=== PATIENT | female | born 1945 | race Caucasian/White ===

== ENCOUNTER 2021-09-25 16:17 | Inpatient (IN) | payer MEDICARE, SELFPAY ==
[2021-09-25] VITALS (10 sets, daily range): BP systolic 136–160; BP diastolic 60–72; PULSE 64–83; RESP 16–20; TEMP 36.7–36.8; O2SAT 95–99; BMI 19.1
--- NOTE | 2021-09-25 16:42 | DI.RAD.S_ITS ---
PROCEDURE: XR FEMUR LT MIN 2V INDICATIONS: slipped on ice/ GLF with shortening and external rotation TECHNIQUE: 2 views of the femur were acquired. COMPARISON: None. FINDINGS: Bones: Generalized decrease in osseous mineralization noted. Oblique fracture of the distal femoral diaphysis is noted with foreshortening and overlapping fracture fragments. Medial angulation present involving distal fracture fragment as well. Total knee arthroplasty present. Soft tissues: No suspicious soft tissue calcifications or masses. IMPRESSION: Displaced and angulated oblique distal femoral diaphyseal fracture. Approved by: Laz Ruvalcaba M.D. on 09/25/2021 at 16:26
--- NOTE | 2021-09-25 16:42 | DI.RAD.S_ITS ---
PROCEDURE: XR PELVIS 1-2V INDICATIONS: slipped on ice/ GLF with shortening and external rotation TECHNIQUE: 1 view(s) of the pelvis acquired. COMPARISON: None. FINDINGS: Bones: Curvilinear lucency in the left intertrochanteric region is suspicious for nondisplaced fracture. No dislocations. No suspicious bony lesions. Soft tissues: Visualized bowel gas pattern is normal. No suspicious soft tissue calcifications. IMPRESSION: Suspect nondisplaced left intertrochanteric fracture. Dictated by: Anshul Goodrich M.D. on 09/25/2021 at 17:00 Approved by: Anshul Goodrich M.D. on 09/25/2021 at 17:02
[2021-09-25 17:12] LABS: Add Manual Diff / Slide Review NO; Basophils Absolute Auto 100 /uL (0-100); Basophils Percent Auto 0.6 % (0-2); Eosinophils Absolute Auto 0 /uL (0-450); Eosinophils Percent Auto 0.2 % (2-4); Hematocrit 37.1 % (36-46); Hemoglobin 12.5 g/dL (12.0-16.0); Lymphocytes Absolute Auto 900 /uL (1100-4500); Lymphocytes Percent Auto 9.1 % (25-40); Mean Corpuscular HGB Conc 33.8 % (30-36); Mean Corpuscular Hemoglobin 31.5 PG (26-34); Mean Corpuscular Volume 93.2 fL (80-100); Monocytes Absolute Auto 500 /uL (0-900); Monocytes Percent Auto 4.8 % (3-14); Neutrophils Absolute Auto 8200 /uL (1500-7000); Neutrophils Percent Auto 85.3 % (50-75); Platelet Count 323 X10^3/uL (150-400); Red Blood Cell Count 3.98 X10^6/uL (4.0-5.2); Red Cell Distribution Width 13.5 % (11.6-14.8); White Blood Cell Count 9.6 X10^3/uL (4.5-11.0)
[2021-09-25 17:23] LABS: INR 1.1 (0.9-1.3); Prothrombin Time 11.7 SECONDS (10.1-12.7)
[2021-09-25] MEDS: MORPHINE 2 MG/ML INJ IV ×3 (17:25→23:32)
[2021-09-25 17:27] LABS: Alanine Aminotransferase 30 IU/L (<35); Albumin 3.9 g/dL (3.5-5.0); Albumin Globulin Ratio 1.2 (1.0-2.8); Alkaline Phosphatase 58 U/L (38-126); Aspartate Aminotransferase 38 IU/L (14-36); Bilirubin Total 0.5 mg/dL (0.2-1.3); Blood Urea Nitrogen 16 mg/dL (7-17); Calcium 8.9 mg/dL (8.4-10.2); Carbon Dioxide 30 mmol/L (22-32); Chloride 105 mmol/L (98-107); Estimated Glomerular Filt Rate > 60.0 mL/min (>60); Globulin 3.3 g/dL (1.7-4.1); Glucose 93 mg/dL (80-110); HEMOLYSIS < 15 (0-50); Potassium 3.9 mmol/L (3.4-5.1); Sodium 138 mmol/L (137-145); Total Protein 7.2 g/dL (6.3-8.2)
--- NOTE | 2021-09-25 17:33 | ED_ITS ---
HPI - Fall General Chief Complaint: Fall Stated Complaint: L Hip Fx Time Seen by Provider: 09/25/21 16:57 History of Present Illness HPI Narrative: 76-year-old female with history of a muscular dystrophy, presenting after a slip and fall on ice. [place] she slipped and fell landing on her left side. She did not hit her head or lose consciousness. She has no numbness tingling or weakness. She is having pain in her left knee area. She is not on any antiplatelet or anticoagulation medication. No other complaints at this time. Related Data Home Medications Medication Instructions Recorded Confirmed CHOLECALCIFEROL (VITAMIN D) 2,000 iu PO QDAY #0 09/05/11 [CALCIUM ] 1,000 mg PO QDAY #0 09/05/11 [FISH OIL] 1 tbls PO QDAY #0 09/05/11 [VYTORIN] 1 tab PO QDAY #0 09/05/11 acetaminophen 500 mg tablet 0 mg PO Q4HP #0 09/05/11 (Tylenol Extra Strength) Allergies Allergy/AdvReac Type Severity Reaction Status Date / Time No Known Drug Allergies Allergy Verified 09/25/21 17:17 Review of Systems Review of Systems Narrative: GENERAL: Denies chills,fever HEENT: Denies throat pain RESPIRATORY: Denies dyspnea, cough, wheezing CARDIOVASCULAR: Denies chest pain, palpitations GASTROINTESTINAL: Denies nausea, vomiting MUSCULOSKELETAL: See HPI SKIN: No rash, no laceration, no pruritus NEUROLOGIC: Denies weakness, dizziness, headache, numbness 8 point review of systems is negative except for those stated above and HPI Patient History Medical History Muscular dystrophy Exam Initial Vital Signs Initial Vital Signs: Vital Signs Pulse Rate 72 09/25/21 16:21 Blood Pressure 160/72 H 09/25/21 16:21 Pulse Oximetry 98 09/25/21 16:21 GENERAL: Thin 76-year-old female HEENT: Head atraumatic,EOMI, pupils reactive, face symmetric, moist mucous m embranes CARDIOVASCULAR: Regular rate and rhythm without murmurs, rubs or gallops. RESPIRATORY: Breath sounds equal bilaterally, no wheezes rales or rhonchi. ABDOMEN: Soft, nontender. Normoactive bowel sounds all 4 quadrants. No guarding or rebound. EXTREMITIES: Normal range of motion, no clubbing or edema. Neurovascularly intact. Left lower extremity swelling knee and superior distal pedal pulse intact and marked mild left hip pain pelvis is stable NEUROLOGICAL: Alert and oriented x4. SKIN: Warm, dry, no laceration, no petechiae, no rashes or lesions. 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 swab/PCR) Stat 09/25/21 18:07 CT LE LT wo con Stat CT pelvis wo con Stat Acetaminophen (Acetaminophen 325 Mg Tablet) 650 mg PO Q6HR PRN PRN Reason: Fever/Mild Pain (1-3) Sodium Chloride (Normal Saline 0.9%) 1,000 mls @ 100 mls/hr IV CONT ZACK Morphine Sulfate (Morphine 2 Mg/Ml Inj) 2 mg IV Q4HR PRN PRN Reason: Pain, Moderate (4-6) Naloxone HCl (Naloxone 0.4 Mg/Ml Vial) 0.2 mg IV Q2MIN PRN PRN Reason: Opiate Reversal Ondansetron HCl (Ondansetron 4 Mg/2 Ml Inj) 4 mg IV Q8HR PRN PRN Reason: Nausea And Vomiting Discontinued Medications Morphine Sulfate (Morphine 2 Mg/Ml Inj) 2 mg IV NOW ONE Stop: 09/25/21 17:16 Last Admin: 09/25/21 17:25 Dose: 2 mg Documented by: DAVID Vital Signs Vital signs: Vital Signs - 8 hr 09/25/21 16:21 09/25/21 16:30 09/25/21 16:31 Temperature Pulse Rate 72 64 70 Respiratory Rate Blood Pressure 160/72 H 142/62 H Pulse Oximetry 98 97 97 09/25/21 16:37 09/25/21 17:00 09/25/21 17:30 Temperature 98.1 F Pulse Rate 67 72 83 Respiratory Rate 16 Blood Pressure 142/62 H 141/65 H 141/60 H Pulse Oximetry 97 97 97 09/25/21 18:00 Temperature Pulse Rate 72 Respiratory Rate Blood Pressure 136/63 Pulse Oximetry 96 MDM - Fall Lab Data Result diagrams: 09/25/21 17:03 09/25/21 17:03 Labs: Lab Results 09/25/21 09/25/21 09/25/21 Range/Units 17:03 17:03 17:03 WBC 9.6 (4.5-11.0) X10^3/uL RBC 3.98 L (4.0-5.2) X10^6/uL Hgb 12.5 (12.0-16.0) g/dL Hct 37.1 (36-46) % MCV 93.2 (80-100) fL MCH 31.5 (26-34) PG MCHC 33.8 (30-36) % RDW 13.5 (11.6-14.8) % Plt Count 323 (150-400) X10^3/uL Neut % (Auto) 85.3 H (50-75) % Lymph % (Auto) 9.1 L (25-40) % [place] % (Auto) 4.8 (3-14) % Eos % (Auto) 0.2 L (2-4) % Baso % (Auto) 0.6 (0-2) % Neut # (Auto) 8200 H (8873-9127) /uL Lymph # (Auto) 900 L (4618-9129) /uL [place] # (Auto) 500 (0-900) /uL Eos # (Auto) 0 (0-450) /uL Baso # (Auto) 100 (0-100) /uL PT 11.7 (10.1-12.7) SECONDS INR 1.1 (0.9-1.3) Sodium 138 (137-145) mmol/L Potassium 3.9 (3.4-5.1) mmol/L Chloride 105 (98-107) mmol/L Carbon Dioxide 30 (22-32) mmol/L BUN 16 (7-17) mg/dL Creatinine 0.41 L (0.52-1.04) mg/dL Estimated GFR > 60.0 (>60) mL/min BUN/Creatinine Ratio 39.0 H (6-22) Glucose 93 (80-110) mg/dL Calcium 8.9 (8.4-10.2) mg/dL Total Bilirubin 0.5 (0.2-1.3) mg/dL AST 38 H (14-36) IU/L ALT 30 (<35) IU/L Alkaline Phosphatase 58 (38-126) U/L Total Protein 7.2 (6.3-8.2) g/dL Albumin 3.9 (3.5-5.0) g/dL Globulin 3.3 (1.7-4.1) g/dL Albumin/Globulin Ratio 1.2 (1.0-2.8) SARS-CoV-2 (PCR) (Negative) 09/25/21 Range/Units 17:14 WBC (4.5-11.0) X10^3/uL RBC (4.0-5.2) X10^6/uL Hgb (12.0-16.0) g/dL Hct (36-46) % MCV (80-100) fL MCH (26-34) PG MCHC (30-36) % RDW (11.6-14.8) % Plt Count (150-400) X10^3/uL Neut % (Auto) (50-75) % Lymph % (Auto) (25-40) % [place] % (Auto) (3-14) % Eos % (Auto) (2-4) % Baso % (Auto) (0-2) % Neut # (Auto) (0392-2523) /uL Lymph # (Auto) (4953-3892) /uL [place] # (Auto) (0-900) /uL Eos # (Auto) (0-450) /uL Baso # (Auto) (0-100) /uL PT (10.1-12.7) SECONDS INR (0.9-1.3) Sodium (137-145) mmol/L Potassium (3.4-5.1) mmol/L Chloride (98-107) mmol/L Carbon Dioxide (22-32) mmol/L BUN (7-17) mg/dL Creatinine (0.52-1.04) mg/dL Estimated GFR (>60) mL/min BUN/Creatinine Ratio (6-22) Glucose (80-110) mg/dL Calcium (8.4-10.2) mg/dL Total Bilirubin (0.2-1.3) mg/dL AST (14-36) IU/L ALT (<35) IU/L Alkaline Phosphatase (38-126) U/L Total Protein (6.3-8.2) g/dL Albumin (3.5-5.0) g/dL Globulin (1.7-4.1) g/dL Albumin/Globulin Ratio (1.0-2.8) SARS-CoV-2 (PCR) Negative (Negative) Imaging Data Extremity x-ray #1: Radiologist's Impression: PROCEDURE:? XR FEMUR LT MIN 2V ? INDICATIONS:? slipped on ice/ GLF with shortening and external rotation ? TECHNIQUE:? 2 views of the femur were acquired.? ? COMPARISON:? None. ? FINDINGS:? ? Bones:? Generalized decrease in osseous mineralization noted.? Oblique fracture of the distal femoral diaphysis is noted with foreshortening and overlapping fracture fragments. ?Medial angulation present involving distal fracture fragment as well.? Total knee arthroplasty present. ? Soft tissues:? No suspicious soft tissue calcifications or masses.? ? IMPRESSION:? ? Displaced and angulated oblique distal femoral diaphyseal fracture.? Approved by: Laz Ruvalcaba M.D. on 09/25/2021 at 16:26? Extremity x-ray #2: Radiologist's Impression: ADDENDUMThis report includes an Addendum and supersedes previous reports for this exam. ? ? ? PROCEDURE:? XR PELVIS 1-2V ? INDICATIONS:? slipped on ice/ GLF with shortening and external rotation ? TECHNIQUE:? 1 view(s) of the pelvis acquired.? ? COMPARISON:? None. ? FINDINGS:? ? Bones:? Curvilinear lucency in the left intertrochanteric region is suspicious for nondisplaced fracture.? No dislocations.? No suspicious bony lesions.? ? Soft tissues:? Visualized bowel gas pattern is normal.? No suspicious soft tissue calcifications.? ? IMPRESSION:? Suspect nondisplaced left intertrochanteric fracture. ? ? Dictated by: Anshul Goodrich M.D. on 09/25/2021 at 17:00 ? ? Approved by: Anshul Goodrich M.D. on 09/25/2021 at 17:02 ? ? ? ADDENDUM: This linear lucency could represent the posterior aspect of the greater troch anter as subsequent left femur radiographs demonstrate a distal spiral fracture. ? ? Dictated by: Anshul Goodrich M.D. on 09/25/2021 at 17:13 ? ? Approved by: Anshul Goodrich M.D. on 09/25/2021 at 17:14 ? Addendum Dictated By: Anshul Goodrich MD Addendum Signed By: Addendum Cosigned By: DD/ TD/TT: 09/25/21 PROCEDURE:? XR PELVIS 1-2V ? INDICATIONS:? slipped on ice/ GLF with shortening and external rotation ? TECHNIQUE:? 1 view(s) of the pelvis acquired.? ? COMPARISON:? None. ? FINDINGS:? ? Bones:? Curvilinear lucency in the left intertrochanteric region is suspicious for nondisplaced fracture.? No dislocations.? No suspicious bony lesions.? ? Soft tissues:? Visualized bowel gas pattern is normal.? No suspicious soft tissue calcifications.? ? IMPRESSION:? Suspect nondisplaced left intertrochanteric fracture. ? ? Dictated by: Anshul Goodrich M.D. on 09/25/2021 at 17:00 ? ? CT scan - abdomen/pelvis: Radiologist's Impression: PROCEDURE:? CT PEL WO CON ? INDICATIONS:? left hip ? TECHNIQUE:? Noncontrast 3 mm axial sections acquired through the bony pelvis, with coronal and sagittal reformatting.? ? COMPARISON:? None. ? FINDINGS:? Image quality:? Excellent.? ? Bones:? Generalized decrease in osseous mineralization noted.? Bilateral hip joint space narrowing and subchondral cysts on the left reflecting moderate osteoarthritis, left greater than right.? Both femoral heads have an appropriate contour.? No evidence of fracture or subluxation.? Degenerative changes noted in the lower lumbar spine ? Pessary device noted in the vaginal vault.? There has been a hysterectomy.? Small amount of free fluid in the pelvis. ? Soft tissues:? As above ? ? IMPRESSION:? ? No evidence of fracture or subluxation. Osteopenia and degenerative changes as above ? Approved by: Laz Ruvalcaba M.D. on 09/25/2021 at 17:44? ECG Data Interpretation: Normal sinus rhythm rate 68 CT interval 152 QRS 80 QTC 446 MDM Narrative Medical decision making narrative: Patient is found to have a distal femur fracture possible in her throat cancer fracture as well. Pain is controlled. She is neurovascularly intact. Dr. Arriaga orthopedics has been updated patient's symptoms test results his reviewed x-rays he is comfortable keeping her here, plan today go to OR tomorrow. Request CT and admit to hospitalist Dr. jackson, in ED to seen evaluate patient Discharge Plan Departure Patient Disposition: Admitted As Inpatient Clinical Impression: Femur fracture, left Admit Date/Time: 09/25/21 18:22 Admit Provider: Tonio Jackson
[2021-09-25 18:03] LABS: COVID19 - ADMIT (NP swab/PCR) Negative (Negative)
--- NOTE | 2021-09-25 18:07 | DI.CT.S_ITS ---
PROCEDURE: CT LE LT W CON INDICATIONS: Femoral fracture TECHNIQUE: Noncontrast 3 mm axial sections acquired of the left femur , with coronal and sagittal reformats. COMPARISON: None. FINDINGS: Image quality: Excellent. Bones: Generalized decrease in osseous mineralization noted. There is an oblique fracture through the distal femoral diaphysis with medial displacement of the distal fracture fracture and and foreshortening with bayonet apposition of fracture fragments. Total knee arthroplasty intact. Soft tissues: There is fatty atrophy of the medial muscle groups. No significant soft tissue hematoma. IMPRESSION: 1. Oblique distal femoral diaphyseal fracture with medial displacement and foreshortening. No significant soft tissue hematoma 2. Total knee arthroplasty appears intact next 3. Osteopenia Approved by: Laz Ruvalcaba M.D. on 09/25/2021 at 17:58
--- NOTE | 2021-09-25 18:07 | DI.CT.S_ITS ---
PROCEDURE: CT PEL WO CON INDICATIONS: left hip TECHNIQUE: Noncontrast 3 mm axial sections acquired through the bony pelvis, with coronal and sagittal reformatting. COMPARISON: None. FINDINGS: Image quality: Excellent. Bones: Generalized decrease in osseous mineralization noted. Bilateral hip joint space narrowing and subchondral cysts on the left reflecting moderate osteoarthritis, left greater than right. Both femoral heads have an appropriate contour. No evidence of fracture or subluxation. Degenerative changes noted in the lower lumbar spine Pessary device noted in the vaginal vault. There has been a hysterectomy. Small amount of free fluid in the pelvis. Soft tissues: As above IMPRESSION: No evidence of fracture or subluxation. Osteopenia and degenerative changes as above Approved by: Laz Ruvalcaba M.D. on 09/25/2021 at 17:44
--- NOTE | 2021-09-25 18:31 | PM.HP.1 ---
History of Present Illness History of Present Illness Date Patient Seen: 09/25/21 Time Patient Seen: 18:10 Chief complaint: L Hip Fx Narrative: Ms. Morgan is a 76W with past medical history of muscular dystrophy who comes in after a fall. She uses a walker, and [employer] in handicap parking. She got out of the car and slipped on ice and fell on her left side. No loss of consciousness. No head strike. She had severe pain in her left leg and hip. She was unable to ambulate. She is not on blood thinners. She comes from [place]. In the ED workup was done, vital signs notable for elevated blood pressure. Labs notable for WBC 9.6, hgb 12.5, INR 1.1, creatinine 0.41. Femur xray showed distal displaced femoral fracture. Pelvis xray showed possible left intertrochanteric fracture. She was ordered for IV pain medications. Orthopedic surgery consulted. She was admitted for further treatment. PMH: muscular dystrophy Family history: grandmother with muscular dystrophy Social history: no smoking, occasional alcohol socially Patient History Family & Social History Safety & Behavioral: Feels Safe in Current Yes Environment Been Physically Hurt or No Threatened By a Person Meds Home Medications and Allergies Home Medications Medication Instructions Recorded Confirmed Type CHOLECALCIFEROL (VITAMIN D) 2,000 iu PO QDAY #0 09/05/11 History [CALCIUM ] 1,000 mg PO QDAY #0 09/05/11 History [FISH OIL] 1 tbls PO QDAY #0 09/05/11 History [VYTORIN] 1 tab PO QDAY #0 09/05/11 History acetaminophen 500 mg tablet 0 mg PO Q4HP #0 09/05/11 History (Tylenol Extra Strength) Allergies Allergy/AdvReac Type Severity Reaction Status Date / Time No Known Drug Allergies Allergy Verified 09/25/21 17:17 Review of Systems Review of Systems Narrative: 14 systems reviewed and negative aside from what is noted in HPI Exam Vital Signs (past 8 hours): - 09/25/21 16:21 09/25/21 16:30 09/25/21 16:31 Temperature Pulse Rate 72 64 70 Respiratory Rate Blood Pressure 160/72 H 142/62 H Pulse Oximetry 98 97 97 09/25/21 16:37 09/25/21 17:00 09/25/21 17:30 Temperature 98.1 F Pulse Rate 67 72 83 Respiratory Rate 16 Blood Pressure 142/62 H 141/65 H 141/60 H Pulse Oximetry 97 97 97 09/25/21 18:00 Temperature Pulse Rate 72 Respiratory Rate Blood Pressure 136/63 Pulse Oximetry 96 Oxygen Delivery Method Room Air Narrative Exam Narrative: GEN: no acute distress HEENT: moist mucous membranes, PERRL NECK: trachea midline, no JVD CV: regular rate and rhythm, no murmurs PULM: clear bilaterally, no wheezes, rhonchi, rales ABD: soft, nontender, nondistended, no organomegaly EXT: warm and well perfused, left leg tender at hip and distal leg, hip is rotated, sensation intactt NEURO: awake, alert, moving all extremities, no focal deficits PSYCH: cooperative, pleasant Objective Labs Result Diagrams: 09/25/21 17:03 09/25/21 17:03 Labs: Laboratory Results - last 24 hr 09/25/21 09/25/21 09/25/21 17:03 17:03 17:03 WBC 9.6 RBC 3.98 L Hgb 12.5 Hct 37.1 MCV 93.2 MCH 31.5 MCHC 33.8 RDW 13.5 Plt Count 323 Neut % (Auto) 85.3 H Lymph % (Auto) 9.1 L [place] % (Auto) 4.8 Eos % (Auto) 0.2 L Baso % (Auto) 0.6 Neut # (Auto) 8200 H Lymph # (Auto) 900 L [place] # (Auto) 500 Eos # (Auto) 0 Baso # (Auto) 100 PT 11.7 INR 1.1 Sodium 138 Potassium 3.9 Chloride 105 Carbon Dioxide 30 BUN 16 Creatinine 0.41 L Estimated GFR > 60.0 BUN/Creatinine Ratio 39.0 H Glucose 93 Calcium 8.9 Total Bilirubin 0.5 AST 38 H ALT 30 Alkaline Phosphatase 58 Total Protein 7.2 Albumin 3.9 Globulin 3.3 Albumin/Globulin Ratio 1.2 SARS-CoV-2 (PCR) 09/25/21 17:14 WBC RBC Hgb Hct MCV MCH MCHC RDW Plt Count Neut % (Auto) Lymph % (Auto) [place] % (Auto) Eos % (Auto) Baso % (Auto) Neut # (Auto) Lymph # (Auto) [place] # (Auto) Eos # (Auto) Baso # (Auto) PT INR Sodium Potassium Chloride Carbon Dioxide BUN Creatinine Estimated GFR BUN/Creatinine Ratio Glucose Calcium Total Bilirubin AST ALT Alkaline Phosphatase Total Protein Albumin Globulin Albumin/Globulin Ratio SARS-CoV-2 (PCR) Negative Assessment & Plan Assessment & Plan narrative: Ms. Morgan is a 76W with a mechanical fall found to have a left femoral fracture. 1. Acute distal femoral fracture, possible left intertrochanteric fracture secondary to mechanical fall -xray shows left distal femoral fracutre, possible left IT fracture -patient npo -IV fluids ordered -IV pain meds ordered -orthopedic surgery consulted -CT left extremity and pelvis ordered to further evaluate fracture 2. Muscular dystrophy -follows at -not on any medications CODE: Full Proxy: Marry Mcguire, daughter I have utilized all available resources to reconcile the patient's home medications. Time Spent With Patient Critical Care time: I spent a total of [] minutes of critical care time on this patient's care today; this time is exclusive of procedural time. Quality MIPS - Admit I confirm the patient?s Advance Care Plan is present, Code status is documented, Surrogate decision maker is in patient?s record [If Yes, STOP here]: Yes
[2021-09-25] MEDS: SODIUM CHLORIDE 0.9% 1,000 ML 100 ML IV (19:58)
[2021-09-25] MEDS: LORazepam 0.5 MG TABLET PO (20:50)
[2021-09-25] MEDS: ONDANSETRON 4 MG/2 ML INJ IV (22:06)
[2021-09-25] MEDS: CYCLOBENZAPRINE 10 MG TABLET 5 MG PO (22:15)
[2021-09-26] VITALS (15 sets, daily range): BP systolic 97–146; BP diastolic 45–78; PULSE 71–87; RESP 9–18; TEMP 36.6–37.1; O2SAT 88–99; BMI 19.1
--- NOTE | 2021-09-26 | DI.RAD.S_ITS ---
PROCEDURE: XR FEMUR LT MIN 2V INDICATIONS: POST-OP LEFT FEMUR IM NAIL TECHNIQUE: To views of the femur were acquired. COMPARISON: [facility], CR, XR FEMUR LT MIN 2V, 09/25/2021, 16:46. FINDINGS: Bones: Patient is status post ORIF of distal left femur fracture. There is anatomic alignment of fracture fragments following placement of intramedullary marry with 2 distal interlocking screws and and 1 proximal interlocking screw. Left knee arthroplasty is stable compared to the prior exam. Soft tissues: No suspicious soft tissue calcifications or masses. IMPRESSION: Anatomic alignment following ORIF of left femur fracture. Dictated by: Sherrie Ferguson MD, PhD on 09/26/2021 at 20:17 Approved by: Sherrie Ferguson MD, PhD on 09/26/2021 at 20:18
--- NOTE | 2021-09-26 | DI.RAD.S_ITS ---
PROCEDURE: XR FEMUR LT MIN 2V INDICATIONS: INTRA OP LEFT IM NAIL TECHNIQUE: To views of the femur were acquired. COMPARISON: [facility], , XR FEMUR LT MIN 2V, 09/25/2021, 16:46. FINDINGS: Intraoperative images demonstrate anatomic alignment distal left femur fracture following placement of intramedullary marry. IMPRESSION: Intraoperative images for internal fixation distal left femur fracture. Dictated by: Sherrie Ferguson MD, PhD on 09/26/2021 at 20:19 Approved by: Sherrie Ferguson MD, PhD on 09/26/2021 at 20:19
--- NOTE | 2021-09-26 00:38 | PC.NURSE ---
Admit Note- Patient arrived to room via stretcher from ER at 1840. Admit questions done, physical assessment done, and skin check done. Patient oriented to bed and bed controls, room, lights, menu, phone, and call byrd/tv remote. Lucero cath patent and set to gravity to drain. PRN pain medications given as ordered per patient request. Patient tolerated with no s/s of ASE noted. Safety measures in place. Patient agrees to call for assistance. Bed alarm activated. Call byrd and phone within reach. will continue to monitor.
[2021-09-26 05:36] LABS: Add Manual Diff / Slide Review NO; Basophils Absolute Auto 0 /uL (0-100); Basophils Percent Auto 0.5 % (0-2); Eosinophils Absolute Auto 0 /uL (0-450); Hematocrit 36.3 % (36-46); Lymphocytes Absolute Auto 600 /uL (1100-4500); Lymphocytes Percent Auto 10.6 % (25-40); Mean Corpuscular Hemoglobin 31.2 PG (26-34); Mean Corpuscular Volume 94.5 fL (80-100); Monocytes Absolute Auto 300 /uL (0-900); Monocytes Percent Auto 5.3 % (3-14); Neutrophils Absolute Auto 4700 /uL (1500-7000); Neutrophils Percent Auto 83.6 % (50-75); Platelet Count 273 X10^3/uL (150-400); Red Blood Cell Count 3.85 X10^6/uL (4.0-5.2); Red Cell Distribution Width 13.6 % (11.6-14.8); White Blood Cell Count 5.6 X10^3/uL (4.5-11.0)
[2021-09-26 05:38] LABS: BUN Creatinine Ratio 34.9 (6-22); Blood Urea Nitrogen 15 mg/dL (7-17); Calcium 8.5 mg/dL (8.4-10.2); Carbon Dioxide 27 mmol/L (22-32); Chloride 106 mmol/L (98-107); Estimated Glomerular Filt Rate > 60.0 mL/min (>60); Glucose 109 mg/dL (80-110); HEMOLYSIS < 15 (0-50); Sodium 137 mmol/L (137-145)
[2021-09-26] MEDS: SODIUM CHLORIDE 0.9% 1,000 ML 100 ML IV ×2 (06:04→19:04)
--- NOTE | 2021-09-26 08:55 | PM.PN.1 ---
Subjective Subjective Date Patient Seen: 09/26/21 Time Patient Seen: 08:00 Interval history: Today she feels improved. Her pain in her leg is manageable. She is NPO for possible surgery. Exam Vital Signs (past 8 hours): - 09/26/21 06:05 09/26/21 08:12 Temperature 98.6 F Pulse Rate 82 Respiratory Rate 17 Blood Pressure 135/71 Pulse Oximetry 98 92 Oxygen Delivery Method Room Air Oxygen Flow Rate 0 Narrative Exam Narrative: GEN: no acute distress HEENT: moist mucous membranes, PERRL NECK: trachea midline, no JVD CV: regular rate and rhythm, no murmurs PULM: clear bilaterally, no wheezes, rhonchi, rales ABD: soft, nontender, nondistended, no organomegaly EXT: warm and well perfused, left leg tender at hip and distal leg, hip is rotated, sensation intactt NEURO: awake, alert, moving all extremities, no focal deficits PSYCH: cooperative, pleasant Objective Labs Result Diagrams: 09/26/21 05:12 09/26/21 05:12 Labs: Laboratory Results - last 24 hr 09/25/21 09/25/21 09/25/21 17:03 17:03 17:03 WBC 9.6 RBC 3.98 L Hgb 12.5 Hct 37.1 MCV 93.2 MCH 31.5 MCHC 33.8 RDW 13.5 Plt Count 323 Neut % (Auto) 85.3 H Lymph % (Auto) 9.1 L [place] % (Auto) 4.8 Eos % (Auto) 0.2 L Baso % (Auto) 0.6 Neut # (Auto) 8200 H Lymph # (Auto) 900 L [place] # (Auto) 500 Eos # (Auto) 0 Baso # (Auto) 100 PT 11.7 INR 1.1 Sodium 138 Potassium 3.9 Chloride 105 Carbon Dioxide 30 BUN 16 Creatinine 0.41 L Estimated GFR > 60.0 BUN/Creatinine Ratio 39.0 H Glucose 93 Calcium 8.9 Total Bilirubin 0.5 AST 38 H ALT 30 Alkaline Phosphatase 58 Total Protein 7.2 Albumin 3.9 Globulin 3.3 Albumin/Globulin Ratio 1.2 SARS-CoV-2 (PCR) 09/25/21 09/26/21 09/26/21 17:14 05:12 05:12 WBC 5.6 RBC 3.85 L Hgb 12.0 Hct 36.3 MCV 94.5 MCH 31.2 MCHC 33.0 RDW 13.6 Plt Count 273 Neut % (Auto) 83.6 H Lymph % (Auto) 10.6 L [place] % (Auto) 5.3 Eos % (Auto) 0.0 L Baso % (Auto) 0.5 Neut # (Auto) 4700 Lymph # (Auto) 600 L [place] # (Auto) 300 Eos # (Auto) 0 Baso # (Auto) 0 PT INR Sodium 137 Potassium 4.0 Chloride 106 Carbon Dioxide 27 BUN 15 Creatinine 0.43 L Estimated GFR > 60.0 BUN/Creatinine Ratio 34.9 H Glucose 109 Calcium 8.5 Total Bilirubin AST ALT Alkaline Phosphatase Total Protein Albumin Globulin Albumin/Globulin Ratio SARS-CoV-2 (PCR) Negative [facility] Medical History Muscular dystrophy Social History household members: none Smoking Status: Never smoker alcohol intake: current Assessment & Plan Assessment & Plan narrative: 1. Acute distal femoral fracture secondary to mechanical fall -xray shows left distal femoral fracutre -patient npo -IV fluids ordered -IV pain meds ordered -orthopedic surgery consulted -CT of hip negative for fracture 2. Muscular dystrophy -follows at -not on any medications Time Spent With Patient Critical Care time: I spent a total of [] minutes of critical care time on this patient's care today; this time is exclusive of procedural time. Quality VTE Deep Vein Thrombosis/Pulmonary Embolism Present on Admission: No
--- NOTE | 2021-09-26 09:03 | CM.DANOTE ---
Addendum entered by Rosalinda Deng R.N. 09/26/21 11:54: Was able to meet with patient, pre-surgery. Patient is pleasant. Confirms that she resides alone in [place]. At her baseline, she uses two canes, drives. She sees a neurologist at [facility]. Mentioned the possiblity of her needing [facility], and she is hopeful that she can go home and stay with her friend, Jaswinder Klein. She indicated, there are no stairs in his home, and would be easier for me to stay there. Let her know that if this is the case, he may need to come in for caregiver training. Gave her a Medicare Choice List, and she will review skilled rehab facilities. Also, on the back of the form, let her know that [employer] is the one agency that does serve [place], as long as they accept her insurance. She understands that after her surgery, therapy could possibly encourage her to go to [facility]. Viktoria at [facility] so far is reviewing. Original Note: DCP: Case received, EMR reviewed and checked on patient. She was sleeping, and will be scheduled for surgery. Was able to obtain some information from EMR with some history on patient. Went ahead and completed DCP assessment based upon information available. Will attempt to meet with patient later today if possible. Patient is a 76 year old female who admitted yesterday afternoon to the care of the hospitalist team. PCP: Unknown at this time. Payer: confirmed: Pete Zarate. Patient came to the hospital via ambulance secondary to having a ground level fall. According to notes, patient was [place] the post office , going [place] a ramp, and slipped and fell secondary to ice. She came to the hospital via ambulance, and was diagnosed with acute distal femoral fracture, displaced. She will be having a surgery consult today for surgery. She will be NPO. Patient has been sleeping, and currently unable to interview her. According to notes in EMR, and patient information, she resides in [place]. [place] provider is listed, [place]. [place], and her main and only contact is her daughter, Marry Mcguire who resides in [facility]. Patient is . According to notes, patient uses [facility] at her baseline. P: DCP to continue to follow. She has not yet had surgery, and no P.T. orders as of yet. Patient does have [facility]. Called February at [facility] to see if she has accepted this insurance before. She indicated, she has, if familiar with this insurance. She is willing to review, but can't accept patient until at least , due to some maintenance problems in their facility. Will also look at back up facilities as well. Will attempt to meet with patient today. Rosalinda Deng RN/Basin Operator Discharge Planning/Care Management Advanced directive, confirm from FAMILY Start: 09/25/21 23:18 Freq: Q24H Status: Active Protocol: Document 09/25/21 23:18 AGW (Rec: 09/26/21 00:13 AGW [id number]) Advance Directive, confirm on record Time 23:00 Person contacted patient Copy received No CM Discharge Assessment Start: 09/26/21 08:47 Freq: Status: Active Protocol: Document 09/26/21 08:47 (Rec: 09/26/21 09:02 [id number]) Discharge Planning Assessment Assigned [place] Rosalinda Deng RN/Basin Operator Advance Directives? No Advance Directives on File No History Provided By Patient,Medical Record Prior Living Arrangements House Household Members none Type of transporation used prior to Drives own vehicle admit DME Already Rented / Owned [facility] / [facility] Patient/Family Preference Long-Term Facility Comment Patient has not had surgery yet, so P.T. not yet ordered. Barriers to Discharge Yes Comment According to notes, she resides [place] . Discharge Plan Long-Term Facility Transportation Arrangement Facility Referrals Initiated Other Additional Comment Have not yet met with patient, and she has not had surgery as of yet. May call Viktoria at [facility] to see if they take her [employer] insurance. Medicare Choice List Provided No SNF/HH Preference Patient has been sleeping. Went ahead and sent referral over to [facility]. Will also send back up facilties as well . Whiteboard Updated in Patient Room with Yes name and ext. # of [place] Review Status In Process Next Review Type Continued Stay Review
[2021-09-26] MEDS: POLYVINYL ALCOHOL DROPS 1 DROPS EYE-BOTH (10:36)
--- NOTE | 2021-09-26 16:42 | P.HP_ITS ---
History of Present Illness History of Present Illness Date Patient Seen: 09/26/21 Time Patient Seen: 11:00 Date of Onset of Symptoms: 09/25/21 Chief complaint: L Hip Fx Narrative: THIS IS A VERY PLEASANT 76 WHO HAD BILATERAL TOTAL KNEE REPLACEMENTS ABOUT 11 YEARS AGO. SHE WAS DOING REASONABLY WELL BUT FELL ON THE ICE AND NOTED THE ACUTE ONSET OF LEFT LEG PAIN. 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 SHE NORMALLY AMBULATES WITH A WALKER AND USES A HANDICAP STICKER. She denies a loss of consciousness. She was not dizzy prior to the fall. She notes she has been feeling well prior to the fall and she has had no problems with her knee replacement. Patient History Medical History Muscular dystrophy Family & Social History Social History: household members none Prior Living Arrangements House Safety & Behavioral: Feels Safe in Current Yes Environment Been Physically Hurt or No Threatened By a Person Suicidal Ideation Description None Suicide Plan Description No Plan Tobacco & Substance use: Smoking Status Never smoker alcohol intake current alcohol intake frequency 0-2 drinks per day Substance Use Type does not use Meds Home Medications and Allergies Home Medications Medication Instructions Recorded Confirmed Type CHOLECALCIFEROL (VITAMIN D) 2,000 iu PO QDAY #0 09/05/11 09/26/21 History [FISH OIL] 1 tbls PO QDAY #0 09/05/11 09/26/21 History acetaminophen 500 mg tablet 1,000 mg PO Q4HP PRN #0 MDD 3000 09/05/11 09/26/21 History (Tylenol Extra Strength) estradiol (Estring) 2 vag ring VAGINAL [id number] 09/26/21 09/26/21 History ezetimibe 10 mg-simvastatin 20 mg 10 - 20 tab PO DAILY 09/26/21 09/26/21 History tablet lifitegrast 5 % eye drops in a 1 drp EYE-BOTH DAILY 09/26/21 09/26/21 History dropperette (Xiidra) methylphenidate HCl 10 mg tablet 10 mg PO BID 09/26/21 09/26/21 History mirabegron 25 mg tablet,extended 25 mg PO DAILY 09/26/21 09/26/21 History release 24 hr (Myrbetriq) Allergies Allergy/AdvReac Type Severity Reaction Status Date / Time No Known Drug Allergies Allergy Verified 09/25/21 17:17 Review of Systems Review of Systems Narrative: She has been feeling well recently, no recent increased neurological decline, denies chest pain dizziness suture or new weakness prior to full. Exam Vital Signs (past 8 hours): - 09/26/21 09:00 09/26/21 09:05 Temperature 98.1 F Pulse Rate 75 Respiratory Rate 16 Blood Pressure 125/63 Pulse Oximetry 92 92 Oxygen Delivery Method Room Air Oxygen Flow Rate 0 Narrative Exam Narrative: HEENT is benign, lungs are clear, cor regular rate and rhythm, abdomen soft benign, left lower extremity shows obvious deformity of the left lower extremity with foreshortening she has a well-healed midline incision for a knee replacement she has a trace of motion in her toes but has decreased motion due to pain sensations intact distally except for some generalized numbness Objective Labs Result Diagrams: 09/26/21 05:12 09/26/21 05:12 Labs: Laboratory Results - last 24 hr 09/25/21 09/25/21 09/25/21 17:03 17:03 17:03 WBC 9.6 RBC 3.98 L Hgb 12.5 Hct 37.1 MCV 93.2 MCH 31.5 MCHC 33.8 RDW 13.5 Plt Count 323 Neut % (Auto) 85.3 H Lymph % (Auto) 9.1 L [place] % (Auto) 4.8 Eos % (Auto) 0.2 L Baso % (Auto) 0.6 Neut # (Auto) 8200 H Lymph # (Auto) 900 L [place] # (Auto) 500 Eos # (Auto) 0 Baso # (Auto) 100 PT 11.7 INR 1.1 Sodium 138 Potassium 3.9 Chloride 105 Carbon Dioxide 30 BUN 16 Creatinine 0.41 L Estimated GFR > 60.0 BUN/Creatinine Ratio 39.0 H Glucose 93 Calcium 8.9 Total Bilirubin 0.5 AST 38 H ALT 30 Alkaline Phosphatase 58 Total Protein 7.2 Albumin 3.9 Globulin 3.3 Albumin/Globulin Ratio 1.2 SARS-CoV-2 (PCR) 09/25/21 09/26/21 09/26/21 17:14 05:12 05:12 WBC 5.6 RBC 3.85 L Hgb 12.0 Hct 36.3 MCV 94.5 MCH 31.2 MCHC 33.0 RDW 13.6 Plt Count 273 Neut % (Auto) 83.6 H Lymph % (Auto) 10.6 L [place] % (Auto) 5.3 Eos % (Auto) 0.0 L Baso % (Auto) 0.5 Neut # (Auto) 4700 Lymph # (Auto) 600 L [place] # (Auto) 300 Eos # (Auto) 0 Baso # (Auto) 0 PT INR Sodium 137 Potassium 4.0 Chloride 106 Carbon Dioxide 27 BUN 15 Creatinine 0.43 L Estimated GFR > 60.0 BUN/Creatinine Ratio 34.9 H Glucose 109 Calcium 8.5 Total Bilirubin AST ALT Alkaline Phosphatase Total Protein Albumin Globulin Albumin/Globulin Ratio SARS-CoV-2 (PCR) Negative x-rays show a left distal femur fracture it is at the metaphyseal diaphyseal junction. She has a left total knee arthroplasty in place I do not see any extension of the fracture into the region of her knee arthroplasty. Assessment & Plan Assessment and plan (1) Muscular dystrophy: Status: Acute (2) Femur fracture, left: Status: Acute Plan I have recommended an intramedullary marry for the left femur. Procedure alternatives risks benefits and complications were discussed in detail with the patient. She does have a left total knee arthroplasty in place it does not appear to involve the components or extend into the supracondylar region. I think it probably can be treated with an intramedullary marry we will have her cerclage cable available if necessary. Time Spent With Patient Critical Care time: I spent a total of [] minutes of critical care time on this patient's care today; this time is exclusive of procedural time. Quality VTE Deep Vein Thrombosis/Pulmonary Embolism Present on Admission: No
--- NOTE | 2021-09-26 16:43 | PC.NURSE ---
Patient taken to OR at 1640
[2021-09-26] MEDS: LACTATED RINGERS 1,000 ML 42 ML IV (16:49)
--- NOTE | 2021-09-26 16:49 | PM.OP.1 ---
Operative Date/Time/Diagnoses Date of procedure: 09/26/21 Time of procedure: 17:20 Pre-op diagnosis: Left femur fracture Post-op diagnosis: same Procedure & Clinicians Procedure: Intramedullary rodding left femur fracture Same procedure as scheduled: Yes Indications: 76-year-old female who fell and sustained a displaced left distal femur fracture. She does have history of a prior left total knee arthroplasty. She is brought the operating room for intramedullary rodding a possible cerclage of her left femur fracture. Surgeon: Michelle Arriaga Click Yes if Unassisted: Yes Anesthesia Type: General Operative Notes Findings: Comminuted left femur fracture displaced, soft bone, adequate reduction and stable fixation Closure Type: primary Specimen(s): none sent Prosthetic devices, grafts, tissues, transplants, or devices: Arriaga and nephew 10 x 40 cm tri Gen [place] O[place]ana trochanteric antegrade nail, 3 interlocking screws Estimated Blood Loss (mL): 250 Blood products transfused: none Procedure in detail: Patient was brought to the operating room. She was given IV antibiotics. A time-out was performed. She underwent induction of a general anesthesia. The left lower extremity was meticulously reduced using the fracture table. Carefully realigned the femur and got essentially an anatomic reduction. She was then prepped and draped in a standard sterile fashion. Intraoperative fluoroscopy was used throughout the procedure. Lateral skin incision was made from the tip of the greater trochanter proximally. Dissection was carried out through skin and subcutaneous tissues. Fascia was incised. A pin was placed in the superior aspect of the greater trochanter. Position was confirmed with AP and lateral fluoroscopy. It was carefully advanced into the intramedullary canal and then it was over reamed. A guide marry was then meticulously passed distally down into the distal fragment. A carefully oriented it is posterior as possible and as far distal as possible in order to get adequate distal fixation. The length was carefully measured. The canal was then meticulously reamed and I specifically redirected the guide brought in order to optimize reduction and allow for adequate distal fixation. The marry was meticulously advanced distally. Fracture alignment was carefully monitored during marry placement. The marry advanced down distal into the distal fragment and look like in adequate location for fixation. AP and lateral image confirmed reduction and location of the marry. Distal interlocking was performed. She had very soft bone. An adequate bite was achieved. Proximal interlocking was then performed. AP and lateral of the entire femur was performed prior to closure confirming reduction and position of the fixation Marcaine was meticulously injected. The wounds were closed with interrupted Vicryl and skin jonathan. The wounds were dressed sterilely. Patient was transferred recovery room in satisfactory condition. Complications none. Complications: none Post-operative Condition: stable Disposition: Acute Care Plan for aftercare: Partial weight-bearing left lower extremity maximum 75 lb. Okay to discharge to home tomorrow or the following day when cleared by physical therapy.
[2021-09-26] MEDS: CEFAZOLIN 2 GM/20 ML SYRINGE IV (17:30)
--- NOTE | 2021-09-26 18:06 | SUR.OPER ---
Head on pillow. Supine on fracture table with operative leg secured in traction. Other leg secured in padded stirrup. Arms across chest, secured with sheet.
--- NOTE | 2021-09-26 18:12 | SUR.OPER ---
Patient complained of sacral pain in the pre-operative area and stated that she sits on a handley's skin at home to help prevent pressure ulcers. I told her that I would inform Dr. Arriaga about this and look at that area once she was asleep. During positioning for surgery it was noted that her sacral area was a bit reddened, but her skin was intact. Dr. Arriaga stated to place a large allevyn dressing on the area when she is transferred back to her in patient bed after surgery.
[2021-09-26] MEDS: BUPIVACAINE 0.5% W/ EPI (PF) 30 ML VIAL INJ (19:30)
--- NOTE | 2021-09-26 20:31 | SUR.PHASEI ---
Report attempted, Regina to call back. Pt arrived to PACU, chin support needed for 10 minutes, airway self maintained after that, 02 nasal cannula added, eventually weaned off. Taking ice chips well, chap stick to lips. Pt denied pain.
--- NOTE | 2021-09-26 20:45 | SUR.PHASEI ---
Regina returned lawson, report given. Pt transported up to room on room air.
--- NOTE | 2021-09-26 21:00 | SUR.PHASEI ---
Pt left with JHON Tapia in stable condition, bed low, locked and SCD's on, call light in reach and pt aware to use and not get OOB on own. Ring remained taped to finger.
[2021-09-26] MEDS: LACTATED RINGERS 1,000 ML 125 ML IV (21:11)
[2021-09-26] MEDS: ACETAMINOPHEN 325 MG TABLET 975 MG PO (21:17)
[2021-09-26] MEDS: DOCUSATE 100 MG CAPSULE PO (21:17)
[2021-09-26] MEDS: ASPIRIN EC 81 MG TABLET PO (21:17)
[2021-09-26 21:37] LABS: Hemoglobin 12.2 g/dL (12.0-16.0)
[2021-09-27] VITALS (10 sets, daily range): BP systolic 59–113; BP diastolic 34–66; PULSE 72–89; RESP 14–19; TEMP 36.4–37.1; O2SAT 97–100
[2021-09-27] MEDS: CEFAZOLIN 1 GM VIAL IV ×2 (02:39→10:02)
[2021-09-27] MEDS: FAMOTIDINE 20 MG TABLET PO ×2 (03:34→10:02)
--- NOTE | 2021-09-27 06:58 | PM.PNPO.1 ---
Subjective Subjective Date Patient Seen: 09/27/21 Time Patient Seen: 06:58 Interval history: Patient is complaining of very mild left thigh pain today much improved after surgery. Overall she is feeling good. No new numbness or tingling. No fevers, chills, night sweats. Exam Vital Signs (past 8 hours): - 09/26/21 23:00 09/27/21 00:00 Temperature 98.3 F Pulse Rate 76 72 Respiratory Rate 18 18 Blood Pressure 98/51 L 103/49 L Pulse Oximetry 99 99 Oxygen Delivery Method Nasal Cannula Oxygen Flow Rate 1 Narrative Exam Narrative: Pleasant 76-year-old female, resting comfortably in bed, no acute distress. She is somewhat frail appearing. Dressing: Proximal dressing has a few areas of scant bloody drainage, distal dressing is clean, dry, intact. Bilateral lower extremities: Motor functions grossly intact, sensation is grossly intact to light touch, calves are soft and nontender to palpation. Objective Labs Result Diagrams: 09/26/21 21:16 09/26/21 05:12 Labs: Laboratory Results - last 24 hr 09/26/21 21:16 Hgb 12.2 Hct 37.0 PFSH Medical History Muscular dystrophy Social History household members: none Smoking Status: Never smoker alcohol intake: current Assessment & Plan Post-op Postoperative Procedures: Procedures Operation Date: 09/26/21 16:15 Actual Procedure Side Surgeon p IM Nailing Left femur fracture Left Michelle Arriaga MD Postoperative day: 1 Postoperative status narrative: Stable status post left IM nailing for left femur fracture Postoperative plan narrative: -mobilize with PT. Partial weight-bearing left lower extremity maximum 75 lb. -continue with current pain regimen and DVT prophylaxis -likely DC home tomorrow when cleared by Physical therapy, given her underlying neurologic condition. Quality VTE Deep Vein Thrombosis/Pulmonary Embolism Present on Admission: No
[2021-09-27] MEDS: METHYLPHENIDATE 5 MG TABLET 10 MG PO ×2 (07:07→13:56)
[2021-09-27 07:23] LABS: Hematocrit 31.9 % (36-46); Hemoglobin 10.5 g/dL (12.0-16.0); Mean Corpuscular HGB Conc 32.9 % (30-36); Mean Corpuscular Hemoglobin 31.1 PG (26-34); Mean Corpuscular Volume 94.5 fL (80-100); Platelet Count 221 X10^3/uL (150-400); Red Blood Cell Count 3.37 X10^6/uL (4.0-5.2); Red Cell Distribution Width 13.3 % (11.6-14.8)
[2021-09-27 07:29] LABS: BUN Creatinine Ratio 35.9 (6-22); Blood Urea Nitrogen 14 mg/dL (7-17); Carbon Dioxide 27 mmol/L (22-32); Chloride 106 mmol/L (98-107); Estimated Glomerular Filt Rate > 60.0 mL/min (>60); Glucose 86 mg/dL (80-110); HEMOLYSIS < 15 (0-50); Sodium 137 mmol/L (137-145)
[2021-09-27] MEDS: ACETAMINOPHEN 325 MG TABLET 975 MG PO ×3 (10:02→20:05)
[2021-09-27] MEDS: ASPIRIN EC 81 MG TABLET PO ×2 (10:03→20:05)
[2021-09-27] MEDS: DOCUSATE 100 MG CAPSULE PO ×2 (10:03→20:05)
[2021-09-27] MEDS: polyethylene glycoL 3350 17 GM POWD.PACK PO (10:03)
--- NOTE | 2021-09-27 10:34 | PT-IP ANOTE ---
Holding physical therapy evaluation. Pt experiencing light-headedness. Nursing taking vital signs and blood pressure is low. Will continue to follow for physical therapy when medically appropriate.
--- NOTE | 2021-09-27 12:28 | PM.PN.1 ---
Subjective Subjective Date Patient Seen: 09/27/21 Time Patient Seen: 08:00 Interval history: She feels well. Her pain is well controlled. She underwent surgery yesterday with no complications Exam Vital Signs (past 8 hours): - 09/27/21 05:00 09/27/21 07:45 09/27/21 09:05 Temperature 97.9 F 97.5 F L Pulse Rate 75 79 Respiratory Rate 18 19 Blood Pressure 105/57 L 113/66 Pulse Oximetry 100 99 97 09/27/21 10:32 09/27/21 10:39 09/27/21 11:24 Temperature Pulse Rate 78 82 74 Respiratory Rate Blood Pressure 59/34 L 88/50 L 78/49 L Pulse Oximetry Oxygen Delivery Method Room Air Oxygen Flow Rate 0 Narrative Exam Narrative: GEN: no acute distress HEENT: moist mucous membranes, PERRL NECK: trachea midline, no JVD CV: regular rate and rhythm, no murmurs PULM: clear bilaterally, no wheezes, rhonchi, rales ABD: soft, nontender, nondistended, no organomegaly EXT: warm and well perfused, left leg tender at hip and distal leg, hip is rotated, sensation intactt NEURO: awake, alert, moving all extremities, no focal deficits PSYCH: cooperative, pleasant Objective Labs Result Diagrams: 09/27/21 06:57 09/27/21 06:57 Labs: Laboratory Results - last 24 hr 09/26/21 09/27/21 09/27/21 21:16 06:57 06:57 WBC 7.0 RBC 3.37 L Hgb 12.2 10.5 L Hct 37.0 31.9 L MCV 94.5 MCH 31.1 MCHC 32.9 RDW 13.3 Plt Count 221 Sodium 137 Potassium 4.0 Chloride 106 Carbon Dioxide 27 BUN 14 Creatinine 0.39 L Estimated GFR > 60.0 BUN/Creatinine Ratio 35.9 H Glucose 86 Calcium 8.0 L PFSH Medical History Muscular dystrophy Social History household members: none Smoking Status: Never smoker alcohol intake: current Assessment & Plan Assessment & Plan narrative: 1. Acute distal femoral fracture secondary to mechanical fall s/p repair -xray shows left distal femoral fracutre -IV fluids ordered -IV pain meds ordered -orthopedic surgery consulted -CT of hip negative for fracture -underwent intramedullary marry placement with ortho on 09/26 2. Muscular dystrophy -follows at -not on any medications Time Spent With Patient Critical Care time: I spent a total of [] minutes of critical care time on this patient's care today; this time is exclusive of procedural time. Quality VTE Deep Vein Thrombosis/Pulmonary Embolism Present on Admission: No
--- NOTE | 2021-09-27 13:10 | PC.NURSE ---
1032 Pt had been using her incentive spirometer-she states incorrectly (Pt had been instructed by this RN and RT but had trouble with the concept sucking rather than sucking the spirometer) and vigorously blowing into when she suddenly became dizzy and notified staff of this. Pt's bed was trendelenberged and bp was checked with result of 59/34 with a hr of 78, then 88/50 hr 82, then 107/52 hr of 81. Pt recovered very quickly after initial dizziness and return to normal respiration. Possible vagal experience? Pt denies pain, nausea, or shortness of breath. States she feels perfectly normal and understands the correct way to use the spirometer. Pt stated her only problem is tenderness to her bottom which she states is a chronic issue and at home and normally uses a sheepskin pad. Turned Pt to her side and placed a waffle cushion under her bottom and she stated she had immediate relief after pad was placed. Pt denies needs at this time and agrees to call for assistance as needed.
--- NOTE | 2021-09-27 15:16 | PT.IIE ---
Current Diagnoses Muscular dystrophy, unspecified (09/25/21) Unspecified fracture of left femur, initial encounter for closed fracture (09/25/21) Surgery Performed Operation Date: 09/26/21 16:15 Actual Procedures p IM Nailing Left femur fracture(Left) - Michelle Arriaga MD Medical History (Last Reviewed 09/27/21 @ 07:00 by Jennifer Modi, GERARDO) Muscular dystrophy Physical Therapy Inpatient Evaluation/Re-Eval M1 PT/OT-IP Prior Functional Status Start: 09/27/21 10:35 Freq: NEEDED Status: Active Protocol: Document 09/27/21 15:16 DLM (Rec: 09/27/21 16:10 DL [id number]) Medical Review Prior Functional Status Medical History Reviewed Yes Diet/Fluid Consistency Regular Communication WFL, swallowing issues due to her MD that she manages at home by eating slowly and careful with food choices. Mobility and Gait Independent with devices; 2 canes, 3WW, 4WW. She ambulates in the community and is able to do stairs with rails. Activities of Daily Living and IADL's Independent Prior Functional Level (Other details) she lives alone but has a friend she can stay with at discharge who is willing to help her, Her friend, Jaswinder, has a one level house without steps to enter Social History Household Members none Living Arrangements House Number of Floors (Floors) Two Floors Number of Stairs To Enter/Railing? she stays on first floor, 4-5 steps to enter with rails Home Equipment Four Wheel Walker,Straight Cane Additional Social History Comment has adjustable bed M2 PT-IP Current Condition Start: 09/27/21 10:35 Freq: NEEDED Status: Active Protocol: Document 09/27/21 15:16 DLM (Rec: 09/27/21 16:10 DL [id number]) Physical Therapy Current Condition Current Condition Evaluation Date 09/27/21 Treatment Diagnosis left femor ORIF w/distal fx, impaired gait and mobility Onset Date 09/25/21 M3 PT-IP Subjective Start: 09/27/21 10:35 Freq: NEEDED Status: Active Protocol: Document 09/27/21 15:16 DLM (Rec: 09/27/21 16:10 DL [id number]) Subjective Physical Therapy Visit Type Type Initial Evaluation Visit Start Time 14:15 Visit Stop Time 15:16 Total Visit Minutes 61 Notes 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, pt is very informed about her condition Number of INFORMATION TECHNOLOGY TECHNICIAN Visits 0 Physical Therapy Visit Comments Patient Comments She is no longer light-headed, pain in left leg is better since surgery Patient Goals she wants to discharge home with friend Jaswinder to help her Therapy Pain Assessment Pain When Pain Assessed During Mobility Pain Present Pain Present Pain Reported Location left leg Intensity 3 Scale Used Numeric (0 - 10) Description Aching,Tender,With Movement Pain Behaviors Facial Grimacing,Guarding Pain Management Techniques Apply Cold,Elevation,Re- positioning,Timing of Activity with Medications M4 PT-IP Mobility and Gait Start: 09/27/21 10:35 Freq: NEEDED Status: Active Protocol: Document 09/27/21 15:16 DLM (Rec: 09/27/21 16:10 DLM [id number]) PT-Bed Mobility Assessment Supine to Sit Supine to Sit Minimal Assistance,Bedrails Sit to Supine Sit to Supine Minimal Assistance Scooting Scooting to Edge of Bed Standby Assistance PT-Transfer Assessment Sit to and From Stand Sit to and from Stand Minimal Assistance,Moderate Assistance,Use of Upper Extremities Equipment Transfer Assistive Device Gait Belt,Front Wheeled Walker Comments Mobility Comments pt stood at edge of bed with fWW x 3 trials, pt gets light- headed each time she stands which limits her time in standing, light-headedness resolves with sitting, Seated BP 94/48. Gait Assessment Gait Gait Assistance Required: Minimum Assistance,Moderate Assistance Distance (Feet) 2 Able to Maintain Weight Bearing Status Yes During Gait Assistive Devices Assistive Device Gait Belt,Front Wheeled Walker Gait Deviations General Gait Pattern Antalgic Factors Limiting Gait Function Factors Limiting Gait Function Decreased Activity Tolerance, Difficulty Following Directions,Limited Range of Motion,Pain,Poor Balance Comments Gait Comments Small side-stepping at edge of bed started this visit to get pt back up towards pillow. She gets light-headed and fatigued that limits her time in standing. Symptoms resolve in sitting. Stair Climbing Assessment Comments Stair Climbing Comments she will have no stairs at her Friends house PT-Balance Assessment Sitting Balance and Reactions Static Sitting Balance Ability Good Dynamic Sitting Balance Ability Good Standing Balance and Reactions Static Standing Balance Ability Fair Dynamic Standing Balance Ability Fair Device Used FWW M5 PT-IP Objective Assessments Start: 09/27/21 10:35 Freq: NEEDED Status: Active Protocol: Document 09/27/21 15:16 DLM (Rec: 09/27/21 16:10 [facility] [id number]) Orientation Orientation/Cognition Level of Alertness Alert Orientation Name,Age,Birthday,Month,Date, Year,Day of Week,Place, Situation Language Function Ability No Deficits Noted Safety Awareness Understands Safety Issues Memory Description No Deficits Noted Comments She gets distracted easily and will need some repetition of new information. She is a good historian about her MD. She is able to follow instructions well. She shows very good effort during therapy. Pt does repeat herself in conversation. Gross Range of Motion Upper Extremity ROM Assessment Within Functional Limits Lower Extremity ROM Assessment Within Functional Limits Strength Upper Extremity Strength Assessment Within Functional Limits Lower Extremity Strength Assessment Bilaterally Impaired Hip flex right 3+/5, left 2+/5 Knee ext right 4+/5, left 2+/5 Ankle DF right 5/5, left 4/5 Comments Strength Comments pain limits functional movements and strenght left LE Coordination Assessment Gross Coordination Gross Coordination WNL Sensation Assessment Sensation Gross Sensation WNL Muscle Tone Muscle Tone WNL Yes M6 PT-IP Treatment Start: 09/27/21 10:35 Freq: NEEDED Status: Active Protocol: Document 09/27/21 15:16 DLM (Rec: 09/27/21 16:10 [facility] [id number]) Physical Therapy Treatment Exercises Exercises Ankle Pumps,Heel Slides Education Education Provided Weight Bearing Status,Safety Other Treatments Other Treatment Performed assisted pt with supine heel slides M7 PT-IP Assessment and Plan Start: 09/27/21 10:35 Freq: NEEDED Status: Active Protocol: Document 09/27/21 15:16 DLM (Rec: 09/27/21 16:10 [facility] [id number]) PT Summary Assessment and Plan Potential Rehabilitation Potential Good Status of Condition at Evaluation Evolving Summary Impairments Pain,ROM,Strength,Balance,Bed Mobility,Transfers,Gait, Activity Tolerance Assessment Summary Blanca is alert and in bed resting. She is eager to start therapy with the goal of discharging home with her friend to help her. She tolerated sitting on the edge of the bed well. In standing she gets light-headed that limits her time up. Her symptoms resolve in sitting. She was able to do a couple of side-steps at the edge of the bed to get closer to the pillow with the FWW and one person assist. Pt returned to supine at the end of this visit. She is motivated to discharge to her friends house . She is progressing slowly with clinical signs and symptoms of low blood pressure that limit her activity tolerance. Will continue to work towards her goal of discharge home to her friends house. I anticipate she will need a wheelchair to manage longer distances of gait since she is only partial weight bearing on left LE. The goal will be to focus on short distances of gait with the FWW to assist with ADL's at home. She will need to continue to progress to be safe to discharge home with her friend . Will continue to assess for discharge planning tomorrow based on her tolerance for activity. Goals Bed Mobility Goal Independent Transfer Goal Contact Guard Assistance, Minimal Assistance,Front Wheeled Walker Gait Goal Contact Guard Assistance, Minimal Assistance,Front Wheel Walker Gait Distance 20 feet Days to Meet Goals 4 Frequency of Treatment Frequency Of Treatment Twice a Day Treatment Plan Physical Therapy Treatment Plan Bed Mobility Training,Transfer Training,Gait Training, Therapeutic Exercise,Balance Retraining,Post Op Education, Discharge Planning,Hot or Cold Pack Precautions Other Precautions hx of MD with decreased balance Weight Bearing Status Weight Bearing Status Partial Weight Bearing Allowed Weight Bearing Amount (enter % 75# or less on left LE or #) (%) Recommendations To Nursing Amount of Assist Needed 1 Person Assist Discharge Recommendations PT Discharge Recommendations Home Health,Home vs SNF Other Discharge Recommendations Jaswinder plans to assist her at home, Pt wants to go home, will need to progress to be safe to discharge home Equipment Needed for Home Before needs fWW for home use Discharge Transportation Needs at Discharge Private Vehicle Discussed discharge issues with manager case
--- NOTE | 2021-09-27 15:23 | CM.DPNOTE ---
Faxed initial home health referral to [facility] and received fax conf. Janae Rothman CM Asst.
--- NOTE | 2021-09-27 16:01 | CM.DPC ---
DCP Home with assist and HH vs SNF Per MD, pt tolerated surgery last night and PT could not work with pt this morning due to BP issues but was able to work with pt this afternoon. SW met bedside with pt while PT was ending their session and plan is home to friend Jaswinder's house on Saturday (see address on facesheet) and [facility]. Per PT, hopeful that pt will be able to d/c to home with friend assist and HH but states if pt cannot work due to orthostatics then may need SNF and will let SW know ezekiel in the AM as if SNF needed then [place] KEVIN auth will need to be started tomorrow morning. Saurabh has been reviewing. SHARDA Cardoso kindly made [facility] referral but F2F not completed or [facility] as unclear if pt can d/c home or to SNF. Plan: SW to follow closely in the AM with PT to determine SNF vs HH. IVELISSE Arreola
[2021-09-28 00:06] VITALS: BP 99/49; PULSE 80; RESP 18; TEMP 37; O2SAT 95
[2021-09-28] MEDS: HYDROCODONE/ACET 5/325 TABLET 1 TAB PO (01:35)
[2021-09-28 05:30] VITALS: BP 92/59; PULSE 68; RESP 18; TEMP 37.1; O2SAT 99
[2021-09-28 07:45] VITALS: BP 100/63; PULSE 81; RESP 16; TEMP 36.2; O2SAT 98
[2021-09-28 07:52] LABS: Hematocrit 30.4 % (36-46); Hemoglobin 10.1 g/dL (12.0-16.0); Mean Corpuscular HGB Conc 33.2 % (30-36); Mean Corpuscular Hemoglobin 31.4 PG (26-34); Mean Corpuscular Volume 94.4 fL (80-100); Platelet Count 208 X10^3/uL (150-400); Red Blood Cell Count 3.22 X10^6/uL (4.0-5.2); Red Cell Distribution Width 13.6 % (11.6-14.8); White Blood Cell Count 7.1 X10^3/uL (4.5-11.0)
[2021-09-28] MEDS: METHYLPHENIDATE 5 MG TABLET 10 MG PO ×2 (07:58→13:49)
[2021-09-28 08:04] LABS: BUN Creatinine Ratio 39.5 (6-22); Blood Urea Nitrogen 17 mg/dL (7-17); Calcium 8.2 mg/dL (8.4-10.2); Carbon Dioxide 33 mmol/L (22-32); Chloride 103 mmol/L (98-107); Estimated Glomerular Filt Rate > 60.0 mL/min (>60); Glucose 98 mg/dL (80-110); HEMOLYSIS < 15 (0-50); Potassium 4.1 mmol/L (3.4-5.1); Sodium 136 mmol/L (137-145)
[2021-09-28] MEDS: polyethylene glycoL 3350 17 GM POWD.PACK PO (08:38)
[2021-09-28] MEDS: ACETAMINOPHEN 325 MG TABLET 975 MG PO ×3 (08:38→21:19)
[2021-09-28] MEDS: FAMOTIDINE 20 MG TABLET PO (08:38)
[2021-09-28] MEDS: DOCUSATE 100 MG CAPSULE PO ×2 (08:38→21:19)
[2021-09-28] MEDS: ASPIRIN EC 81 MG TABLET PO ×2 (08:38→21:19)
--- NOTE | 2021-09-28 09:59 | PT.IPTN ---
Current Diagnoses Muscular dystrophy, unspecified (09/25/21) Unspecified fracture of left femur, initial encounter for closed fracture (09/25/21) Surgery Performed Operation Date: 09/26/21 16:15 Actual Procedures p IM Nailing Left femur fracture(Left) - Michelle Arriaga MD Physical Therapy Treatment Note M2 PT-IP Current Condition Start: 09/27/21 10:35 Freq: NEEDED Status: Active Protocol: Document 09/27/21 15:16 DLM (Rec: 09/27/21 16:10 DLM [id number]) Physical Therapy Current Condition Current Condition Evaluation Date 09/27/21 Treatment Diagnosis left femor ORIF w/distal fx, impaired gait and mobility Onset Date 09/25/21 M3 PT-IP Subjective Start: 09/27/21 10:35 Freq: NEEDED Status: Active Protocol: Document 09/28/21 09:59 DLM (Rec: 09/28/21 11:29 DLM [id number]) Subjective Physical Therapy Visit Type Type Initial Evaluation Visit Start Time 09:15 Visit Stop Time 09:59 Total Visit Minutes 44 Number of LIGHT INDUSTRIAL SUPERVISOR Visits 0 Physical Therapy Visit Comments Patient Comments She feels better today. She reports not as light-headed as yesturday. She reports still getting a little light-headed with transfers but it resolved in sitting. Patient Goals be able to go home with friend Jaswinder Therapy Pain Assessment Pain When Pain Assessed During Mobility Pain Present Pain Present Pain Reported Location left leg Intensity 3 Scale Used Numeric (0 - 10) Description Aching,Tightness,With Movement Pain Behaviors Guarding Pain Management Techniques Elevation,Re-positioning, Timing of Activity with Medications M4 PT-IP Mobility and Gait Start: 09/27/21 10:35 Freq: NEEDED Status: Active Protocol: Document 09/28/21 09:59 DLM (Rec: 09/28/21 11:29 DLM [id number]) PT-Bed Mobility Assessment Supine to Sit Supine to Sit Minimal Assistance Scooting Scooting to Edge of Bed Standby Assistance PT-Transfer Assessment Sit to and From Stand Sit to and from Stand Contact Guard Assistance, Minimal Assistance,Use of Upper Extremities Equipment Transfer Assistive Device Gait Belt,Front Wheeled Walker Transfers Transfer Destination Chair Transfer Technique Stand Step Pivot Transfer Ability Level of Assist Contact Guard Assistance, Minimal Assistance,Use of Upper Extremities Comments Mobility Comments pt left up to recliner this visit with needs close, 3 trials of bed to chair transfer performed got improve her ability, discussed with nursing to start using bedside commode today to progress her activity tolerance, pt needs reminders for safe hand placements during sit-stand Gait Assessment Gait Gait Assistance Required: Contact Guard Assist,Minimum Assistance Distance (Feet) 2 Able to Maintain Weight Bearing Status Yes During Gait Assistive Devices Assistive Device Gait Belt,Front Wheeled Walker Gait Deviations General Gait Pattern Antalgic Factors Limiting Gait Function Factors Limiting Gait Function Decreased Activity Tolerance, Decreased Strength,Limited Range of Motion,Pain,Poor Balance Comments Gait Comments initiated training for gait, pt using UE's well on FWW to compensate for left LE partial weight bearing, light- headedness and limited activity tolerance prevented progression of gait this visit , continue to anticipate need for wheelchair for longer distances Stair Climbing Assessment Comments Stair Climbing Comments none at [facility] PT-Balance Assessment Sitting Balance and Reactions Static Sitting Balance Ability Good Dynamic Sitting Balance Ability Good Standing Balance and Reactions Static Standing Balance Ability Fair Dynamic Standing Balance Ability Fair Device Used FWW M5 PT-IP Objective Assessments Start: 09/27/21 10:35 Freq: NEEDED Status: Active Protocol: Document 09/27/21 15:16 DLM (Rec: 09/27/21 16:10 DLM [id number]) Orientation Orientation/Cognition Level of Alertness Alert Orientation Name,Age,Birthday,Month,Date, Year,Day of Week,Place, Situation Language Function Ability No Deficits Noted Safety Awareness Understands Safety Issues Memory Description No Deficits Noted Comments She gets distracted easily and will need some repetition of new information. She is a good historian about her MD. She is able to follow instructions well. She shows very good effort during therapy. Pt does repeat herself in conversation. Gross Range of Motion Upper Extremity ROM Assessment Within Functional Limits Lower Extremity ROM Assessment Within Functional Limits Strength Upper Extremity Strength Assessment Within Functional Limits Lower Extremity Strength Assessment Bilaterally Impaired Hip flex right 3+/5, left 2+/5 Knee ext right 4+/5, left 2+/5 Ankle DF right 5/5, left 4/5 Comments Strength Comments pain limits functional movements and strenght left LE Coordination Assessment Gross Coordination Gross Coordination WNL Sensation Assessment Sensation Gross Sensation WNL Muscle Tone Muscle Tone WNL Yes M6 PT-IP Treatment Start: 09/27/21 10:35 Freq: NEEDED Status: Active Protocol: Document 09/28/21 09:59 DLM (Rec: 09/28/21 11:29 DLM [id number]) Physical Therapy Treatment Exercises Exercises Ankle Pumps,Seated Knee Flexion/Extension Education Education Provided Weight Bearing Status,Safety M7 PT-IP Assessment and Plan Start: 09/27/21 10:35 Freq: NEEDED Status: Active Protocol: Document 09/28/21 09:59 DLM (Rec: 09/28/21 11:29 DLM [id number]) PT Summary Assessment and Plan Summary Impairments Pain,ROM,Strength,Balance,Bed Mobility,Transfers,Gait, Activity Tolerance Progress Towards Goals Slow Progress due to Medical Issues Assessment Summary Blanca is alert and eager to work on her mobility. She has less light-headedness during mobility today but still gets light-headed if in standing too long. Her symptoms resolve in sitting. Pt able to progress to transfers to recliner this visit. Anticipate she will continue to progress slowly but well with therapy. Continue to work towards home with her friend to assist her. Pt will need a fWW for home use and a wheelchair for longer distances. Will continue to assess as her light-headedness improves but anticipate she will be ready for discharge in another day. Goals Bed Mobility Goal Independent Transfer Goal Contact Guard Assistance, Minimal Assistance,Front Wheeled Walker Gait Goal Contact Guard Assistance, Minimal Assistance,Front Wheel Walker Gait Distance 20 feet Days to Meet Goals 4 Frequency of Treatment Frequency Of Treatment Twice a Day Treatment Plan Physical Therapy Treatment Plan Bed Mobility Training,Transfer Training,Gait Training, Therapeutic Exercise,Balance Retraining,Post Op Education, Discharge Planning,Hot or Cold Pack Precautions Other Precautions hx of MD with decreased balance Weight Bearing Status Weight Bearing Status Partial Weight Bearing Allowed Weight Bearing Amount (enter % 75# or less on left LE or #) (%) Recommendations To Nursing Amount of Assist Needed 1 Person Assist Discharge Recommendations PT Discharge Recommendations Home Health,Home vs SNF Other Discharge Recommendations Jaswinder plans to assist her at home, Pt wants to go home, will need to progress to be safe to discharge home Equipment Needed for Home Before needs fWW for home use, pt Discharge plans to borrow wheelchair from [facility] Transportation Needs at Discharge Private Vehicle
[2021-09-28 12:00] VITALS: BP 110/54; PULSE 92; RESP 16; TEMP 36.9; O2SAT 99
--- NOTE | 2021-09-28 12:26 | CM.DPC ---
Addendum entered by Rosalinda Deng R.N. 09/28/21 14:09: Spoke to Prema at [facility], she had called for follow up information. She had received referral. Confirmed with her that they can work with her [facility], she should be reimbursed at 100% coverage. Let Prema know that patient most likely will discharge tomorrow. Per Prema's request, faxed her over face to face and orders. Included P.T. notes. Added new address of where patient will be staying which is: [address], Saturday. Spoke to patient, and she had given address. She also stated, her goal [place] health[place]. [place] also mentioned that her friend, Jaswinder, was going to crab picker a wheel chair for her at the [facility] on Saturday. P: DCP to continue to follow. Plan is [facility] P.T, and O.T, when she is medically ready for discharge. Rosalinda Deng RN/Rug Scratcher Original Note: DCP Cont: Discussed patient during team rounds. Spoke to P.T, and stated, she should be able to go home with home hel. Had hospitalist sign face to face. [employer] is the only agency that goes to Saturday, will use this agency. Hospitalist indicated, surgery indicated that patient is not ready to go yet today, as hospitalist was possibly going to discharge today. P: DCP to continue to follow. Plan is home with [facility]. Will fax over referral. Rosalinda Deng RN/Rug Scratcher
--- NOTE | 2021-09-28 13:25 | P.PN_ITS ---
Subjective Subjective Date Patient Seen: 09/28/21 Time Patient Seen: 08:00 Interval history: She feels great she says. Her pain is well controlled. Exam Vital Signs (past 8 hours): - 09/28/21 05:30 09/28/21 07:45 Temperature 98.7 F 97.2 F L Pulse Rate 68 81 Respiratory Rate 18 16 Blood Pressure 92/59 L 100/63 Pulse Oximetry 99 98 Oxygen Delivery Method Room Air Oxygen Flow Rate 0 Narrative Exam Narrative: GEN: no acute distress HEENT: moist mucous membranes, PERRL NECK: trachea midline, no JVD CV: regular rate and rhythm, no murmurs PULM: clear bilaterally, no wheezes, rhonchi, rales ABD: soft, nontender, nondistended, no organomegaly EXT: warm and well perfused, left leg tender at hip and distal leg, hip is rot ated, sensation intactt NEURO: awake, alert, moving all extremities, no focal deficits PSYCH: cooperative, pleasant Objective Labs Result Diagrams: 09/28/21 07:18 09/28/21 07:18 Labs: Laboratory Results - last 24 hr 09/28/21 09/28/21 07:18 07:18 WBC 7.1 RBC 3.22 L Hgb 10.1 L Hct 30.4 L MCV 94.4 MCH 31.4 MCHC 33.2 RDW 13.6 Plt Count 208 Sodium 136 L Potassium 4.1 Chloride 103 Carbon Dioxide 33 H BUN 17 Creatinine 0.43 L Estimated GFR > 60.0 BUN/Creatinine Ratio 39.5 H Glucose 98 Calcium 8.2 L [facility] Medical History Muscular dystrophy Social History household members: none Smoking Status: Never smoker alcohol intake: current Assessment & Plan Assessment & Plan narrative: 1. Acute distal femoral fracture secondary to mechanical fall s/p repair -xray shows left distal femoral fracutre -IV fluids ordered -IV pain meds ordered -orthopedic surgery consulted -CT of hip negative for fracture -underwent intramedullary marry placement with ortho on 09/26 2. Muscular dystrophy -follows at -not on any medications Patient doing well medically. From medicine standpoint ok to discharge once surgery says ok for discharge. Dispo home with home health vs snf Time Spent With Patient Critical Care time: I spent a total of [] minutes of critical care time on this patient's care today; this time is exclusive of procedural time. Quality VTE Deep Vein Thrombosis/Pulmonary Embolism Present on Admission: No
--- NOTE | 2021-09-28 15:11 | PM.PNPO.1 ---
Subjective Subjective Date Patient Seen: 09/28/21 Time Patient Seen: 07:45 Interval history: Patient is complaining of very mild left leg pain, her pain is significantly improved since surgery. She has a history of muscular dystrophy and is seen at for this. The [place] is controlling her pain well as well as Tylenol. Overall she is feeling well and like to be discharged Exam Vital Signs (past 8 hours): - 09/28/21 07:45 09/28/21 12:00 Temperature 97.2 F L 98.4 F Pulse Rate 81 92 H Respiratory Rate 16 16 Blood Pressure 100/63 110/54 L Pulse Oximetry 98 99 Oxygen Delivery Method Room Air Oxygen Flow Rate 0 Narrative Exam Narrative: Pleasant 76-year-old female, resting comfortably in bed, no acute distress. Dressing demonstrates some bloody drainage on the proximal incision, distal is clean dry intact. No surrounding erythema or edema or induration. Bilateral lower extremity: Motor function is grossly intact sensation is grossly intact to light touch, calves are soft and nontender to palpation. Objective Labs Result Diagrams: 09/28/21 07:18 09/28/21 07:18 Labs: Laboratory Results - last 24 hr 09/28/21 09/28/21 07:18 07:18 WBC 7.1 RBC 3.22 L Hgb 10.1 L Hct 30.4 L MCV 94.4 MCH 31.4 MCHC 33.2 RDW 13.6 Plt Count 208 Sodium 136 L Potassium 4.1 Chloride 103 Carbon Dioxide 33 H BUN 17 Creatinine 0.43 L Estimated GFR > 60.0 BUN/Creatinine Ratio 39.5 H Glucose 98 Calcium 8.2 L PFSH Medical History Muscular dystrophy Social History household members: none Smoking Status: Never smoker alcohol intake: current Assessment & Plan Post-op Postoperative Procedures: Procedures Operation Date: 09/26/21 16:15 Actual Procedure Side Surgeon p IM Nailing Left femur fracture Left Michelle Arriaga MD Postoperative day: 2 Postoperative status: doing well Postoperative status narrative: Stable status post left IM nailing of the left femur fracture Postoperative plan narrative: -mobilize with PT. Partial weight-bearing left lower extremity maximum 75 lb. -continue with current pain regimen and DVT prophylaxis -DC home today as long as she is cleared by the hospitalist, and when cleared by Physical therapy Quality VTE Deep Vein Thrombosis/Pulmonary Embolism Present on Admission: No
--- NOTE | 2021-09-28 16:26 | PT.IPTN ---
Current Diagnoses Muscular dystrophy, unspecified (09/25/21) Unspecified fracture of left femur, initial encounter for closed fracture (09/25/21) Surgery Performed Operation Date: 09/26/21 16:15 Actual Procedures p IM Nailing Left femur fracture(Left) - Michelle Arriaga MD Physical Therapy Treatment Note M2 PT-IP Current Condition Start: 09/27/21 10:35 Freq: NEEDED Status: Active Protocol: Document 09/27/21 15:16 DLM (Rec: 09/27/21 16:10 DLM [id number]) Physical Therapy Current Condition Current Condition Evaluation Date 09/27/21 Treatment Diagnosis left femor ORIF w/distal fx, impaired gait and mobility Onset Date 09/25/21 M3 PT-IP Subjective Start: 09/27/21 10:35 Freq: NEEDED Status: Active Protocol: Document 09/28/21 16:26 DLM (Rec: 09/28/21 16:45 DLM [id number]) Subjective Physical Therapy Visit Type Type Treatment Note Visit Start Time 15:55 Visit Stop Time 16:26 Total Visit Minutes 31 Number of PSYCHIATRIC TECHNICIAN Visits 0 Physical Therapy Visit Comments Patient Comments She feels better this afternoon, she thinks she will be ready to go home tomorrow. Patient Goals discharge home to [facility] with his help Therapy Pain Assessment Pain When Pain Assessed After Treatment Pain Present Pain Present Pain Reported Location left leg Intensity 1 Scale Used Numeric (0 - 10) Description Aching,Tender,With Movement Pain Management Techniques Apply Cold,Elevation M4 PT-IP Mobility and Gait Start: 09/27/21 10:35 Freq: NEEDED Status: Active Protocol: Document 09/28/21 16:26 DLM (Rec: 09/28/21 16:45 DLM [id number]) PT-Bed Mobility Assessment Supine to Sit Supine to Sit Standby Assistance Sit to Supine Sit to Supine Standby Assistance Scooting Scooting to Edge of Bed Independent Scooting Up and Down in Bed Independent PT-Transfer Assessment Sit to and From Stand Sit to and from Stand Contact Guard Assistance, Minimal Assistance,Use of Upper Extremities Equipment Transfer Assistive Device Gait Belt,Front Wheeled Walker Transfers Transfer Destination Bed,Chair Transfer Technique Stand Step Pivot Transfer Ability Level of Assist Contact Guard Assistance,Use of Upper Extremities Comments Mobility Comments Pt has been up in recliner a lot today. She has been using the bedside commode with nursing. She reports mild intermittent light-headedness but it does not prevent mobility. Pt left up in the recliner at the end of this visit with ice on thigh to manage swelling. Gait Assessment Gait Gait Assistance Required: Contact Guard Assist,Minimum Assistance Distance (Feet) 10 Assistive Devices Assistive Device Gait Belt,Front Wheeled Walker Gait Deviations General Gait Pattern Antalgic Factors Limiting Gait Function Factors Limiting Gait Function Decreased Activity Tolerance, Decreased Strength, Incoordination,Pain,Poor Balance Comments Gait Comments 3 trials of gait performed this visit with seated rest between them. She has a discordinated movement pattern to her LE's during gait but pt reports this is baseline and related to her Muscular Dystrophy. Stair Climbing Assessment Comments Stair Climbing Comments no stairs at [facility] PT-Balance Assessment Sitting Balance and Reactions Static Sitting Balance Ability Normal Dynamic Sitting Balance Ability Normal Standing Balance and Reactions Static Standing Balance Ability Good Dynamic Standing Balance Ability Fair Device Used FWW M5 PT-IP Objective Assessments Start: 09/27/21 10:35 Freq: NEEDED Status: Active Protocol: Document 09/27/21 15:16 DLM (Rec: 09/27/21 16:10 DLM [id number]) Orientation Orientation/Cognition Level of Alertness Alert Orientation Name,Age,Birthday,Month,Date, Year,Day of Week,Place, Situation Language Function Ability No Deficits Noted Safety Awareness Understands Safety Issues Memory Description No Deficits Noted Comments She gets distracted easily and will need some repetition of new information. She is a good historian about her MD. She is able to follow instructions well. She shows very good effort during therapy. Pt does repeat herself in conversation. Gross Range of Motion Upper Extremity ROM Assessment Within Functional Limits Lower Extremity ROM Assessment Within Functional Limits Strength Upper Extremity Strength Assessment Within Functional Limits Lower Extremity Strength Assessment Bilaterally Impaired Hip flex right 3+/5, left 2+/5 Knee ext right 4+/5, left 2+/5 Ankle DF right 5/5, left 4/5 Comments Strength Comments pain limits functional movements and strenght left LE Coordination Assessment Gross Coordination Gross Coordination WNL Sensation Assessment Sensation Gross Sensation WNL Muscle Tone Muscle Tone WNL Yes M6 PT-IP Treatment Start: 09/27/21 10:35 Freq: NEEDED Status: Active Protocol: Document 09/28/21 16:26 DLM (Rec: 09/28/21 16:45 DL [id number]) Physical Therapy Treatment Exercises Exercises Ankle Pumps,Seated Knee Flexion/Extension Education Education Provided Weight Bearing Status,Safety Equipment Issued Equipment Type and Company will need a fWW for home, pt has borrowed a wheelchair from the [facility] Other Treatments Other Treatment Performed educated pt to use the fWW for all gait (no exceptions) M7 PT-IP Assessment and Plan Start: 09/27/21 10:35 Freq: NEEDED Status: Active Protocol: Document 09/28/21 16:26 DLM (Rec: 09/28/21 16:45 DL [id number]) PT Summary Assessment and Plan Summary Impairments Pain,ROM,Strength,Balance,Bed Mobility,Transfers,Gait, Activity Tolerance Progress Towards Goals Slow Progress due to Medical Issues Assessment Summary Blanca demonstrates good progress today. She is tolerating transfers well with the fWW. She progressed to short distances of gait with the FWW in her room. Her light -headedness shows good improvement and did not limit gait this visit. A lot of repetition used for pt education regarding safety and weight bearing staff. Anticipate she will be ready for discharge home tomorrow if she continues to progress well. Goals Bed Mobility Goal Independent Transfer Goal Contact Guard Assistance, Minimal Assistance,Front Wheeled Walker Gait Goal Contact Guard Assistance, Minimal Assistance,Front Wheel Walker Gait Distance 20 feet Days to Meet Goals 4 Frequency of Treatment Frequency Of Treatment Twice a Day Treatment Plan Physical Therapy Treatment Plan Bed Mobility Training,Transfer Training,Gait Training, Therapeutic Exercise,Balance Retraining,Post Op Education, Discharge Planning,Hot or Cold Pack Precautions Other Precautions hx of MD with decreased balance Weight Bearing Status Weight Bearing Status Partial Weight Bearing Allowed Weight Bearing Amount (enter % 75# or less on left LE or #) (%) Recommendations To Nursing Amount of Assist Needed 1 Person Assist Discharge Recommendations PT Discharge Recommendations Home with Assistance,Home Health Other Discharge Recommendations Jaswinder plans to assist her at home Equipment Needed for Home Before needs FWW for home, has Discharge borrowed a wheelchair from the [facility] Transportation Needs at Discharge Private Vehicle
[2021-09-28 17:27] VITALS: BP 114/64; PULSE 79; RESP 14; TEMP 36.3; O2SAT 98
[2021-09-28 20:35] VITALS: BP 128/75; PULSE 74; RESP 17; TEMP 37; O2SAT 99
[2021-09-28] MEDS: MELATONIN 3 MG TABLET PO (22:46)
[2021-09-29 05:00] VITALS: BP 120/65; PULSE 78; RESP 18; TEMP 36.4; O2SAT 97
[2021-09-29 07:11] LABS: Hematocrit 30.3 % (36-46); Mean Corpuscular Hemoglobin 31.5 PG (26-34); Mean Corpuscular Volume 95.5 fL (80-100); Platelet Count 218 X10^3/uL (150-400); Red Blood Cell Count 3.17 X10^6/uL (4.0-5.2); Red Cell Distribution Width 13.7 % (11.6-14.8); White Blood Cell Count 6.3 X10^3/uL (4.5-11.0)
[2021-09-29] MEDS: ASPIRIN EC 81 MG TABLET PO (08:12)
[2021-09-29] MEDS: ACETAMINOPHEN 325 MG TABLET 975 MG PO (08:12)
[2021-09-29] MEDS: FAMOTIDINE 20 MG TABLET PO (08:12)
[2021-09-29] MEDS: DOCUSATE 100 MG CAPSULE PO (08:12)
[2021-09-29] MEDS: METHYLPHENIDATE 5 MG TABLET 10 MG PO (08:25)
[2021-09-29] MEDS: polyethylene glycoL 3350 17 GM POWD.PACK PO (08:35)
[2021-09-29 09:21] VITALS: BP 126/63; PULSE 69; RESP 16; TEMP 36.9; O2SAT 99
--- NOTE | 2021-09-29 09:40 | PM.DS.1 ---
History of Present Illness History of Present Illness Chief complaint: L Hip Fx Narrative: THIS IS A VERY PLEASANT 76 WHO HAD BILATERAL TOTAL KNEE REPLACEMENTS ABOUT 11 YEARS AGO. SHE WAS DOING REASONABLY WELL BUT FELL ON THE ICE AND NOTED THE ACUTE ONSET OF LEFT LEG PAIN. 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 SHE NORMALLY AMBULATES WITH A WALKER AND USES A HANDICAP STICKER. She denies a loss of consciousness. She was not dizzy prior to the fall. She notes she has been feeling well prior to the fall and she has had no problems with her knee replacement. Discharge Providers Provider Date of admission: 09/25/21 18:22 Discharge Date: 09/29/21 Consults: 09/26/21 08:23 Consult to Orthopedic Surgery Routine Comment: Consulting Provider: Michelle Arriaga Reason for consultation: hip fx Has provider been notified: Yes 09/26/21 21:01 Consult to Discharge Planning Routine Comment: Consult to Physical Therapy Evaluate & Treat Comment: Physician Instructions: Evaluate and Treat Consult to Respiratory Therapy Evaluate & Treat Comment: Physician Instructions: Evaluate and treat 09/28/21 13:24 Consult to Home Health Routine Comment: Reason For Exam: Home Health P.T, and O.T. 09/29/21 08:17 Consult to Physical Therapy Evaluate & Treat Comment: Physician Instructions: FWW for home use Discharge provider: Michelle Arriaga MD Summary Status at Discharge Functional status at discharge: uses cane/walker Overall status at discharge: patient is progressing back to baseline Time Spent with Patient Time spent: Less than 30 minutes Exam Vital Signs (past 8 hours): - 09/29/21 05:00 09/29/21 09:21 Temperature 97.6 F 98.4 F Pulse Rate 78 69 Respiratory Rate 18 16 Blood Pressure 120/65 126/63 Pulse Oximetry 97 99 Oxygen Delivery Method Room Air Oxygen Flow Rate 0 Narrative Exam Narrative: Dressing is dry, anticipated swelling in the thigh, calf sore soft bilaterally, mild pain with range of motion Objective Labs Result Diagrams: 09/29/21 06:42 09/28/21 07:18 Labs: Laboratory Results - last 24 hr 09/29/21 06:42 WBC 6.3 RBC 3.17 L Hgb 10.0 L Hct 30.3 L MCV 95.5 MCH 31.5 MCHC 33.0 RDW 13.7 Plt Count 218 PFSH Medical History Muscular dystrophy Social History household members: none Smoking Status: Never smoker alcohol intake: current Discharge Assessment & Plan Assessment and Plan Assessment: Doing well status post intramedullary nailing left femur stable for discharge. Plan of Treatment: Discharge to home. Home health physical therapy. Partial weight-bearing on the left lower extremity 75 lb. Leave dressing on. Okay to shower. Follow up in approximately 2 weeks as an outpatient. Baby aspirin for DVT prophylaxis. Discharge Plan Discharge Plan Patient Disposition: Home Provider Discharge Comment: priority loading for the [facility] Discharge orders & Medications Prescriptions: New hydrocodone-acetaminophen 5-325 mg Tablet 1 tab PO Q4HR PRN (Reason: Pain, Mild (1-3)) Qty: 20 0RF aspirin 81 mg Tablet,Delayed Release (Dr/Ec) 81 mg PO BID Qty: 60 0RF Continued acetaminophen [Tylenol Extra Strength] 500 MG tablet 1,000 mg PO Q4HP MDD 3000 PRN (Reason: Pain (Scale Score 4-6)) Qty: 0 0RF CHOLECALCIFEROL (VITAMIN D) 2,000 iu PO QDAY Qty: 0 0RF [FISH OIL] 1 tbls PO QDAY Qty: 0 0RF Xiidra 5 % dropperette 1 drp EYE-BOTH DAILY 0RF Label Comments: INSTILL ONE DROP IN EACH EYE EVERY DAY methylphenidate HCl 10 mg tablet 10 mg PO BID 0RF Label Comments: TAKE ONE TABLET BY MOUTH TWICE DAILY Estring 2 mg (7.5 mcg /24 hour) ring 2 vag ring VAGINAL [id number] 0RF Label Comments: INSERT ONE RING VAGINALLY EVERY 90 DAYS. REMOVE OLD RING BEFORE INSERTING NEW. ezetimibe-simvastatin 10-20 mg tablet 10 - 20 tab PO DAILY 0RF Label Comments: TAKE ONE TABLET BY MOUTH NIGHTLY Myrbetriq 25 mg tablet extended release 24 hr 25 mg PO DAILY 0RF Label Comments: Take 1 tablet by mouth Daily. Follow up/Referrals: Michelle Arriaga MD [Physician] - Diet/Activity/Treatments Diet: Diet as Tolerated Activity: Ambulate multiple times a day. Cold/Heat Therapy: Use ice multiple times a day. Other treatments: Follow-up with me in about 2 weeks. Skin/Wound/Dressing Care Report to your healthcare provider any signs of infection, such as:: chills, fever, night sweats, increased pain, unusual drainage and unusual redness Dressing: Leave dressing on. Okay to shower. Visit Report/Discharge Packet Instructions: DI for Open Reduction Internal Fixation Surgery, DI for Prescription Opioid Use Stand Alone Forms: Surgery Discharge Quality VTE Deep Vein Thrombosis/Pulmonary Embolism Present on Admission: No
--- NOTE | 2021-09-29 10:19 | CM.DPC ---
DCP Cont: Patient is to be discharging home today back to Saturday. her friend, Jaswinder Klein will be picking her up. She will get [facility]. Called Abdifatah at [facility] and let him know that patient is discharging home today. Faxed over DC Summary. Went ahead and faxed orders and face to face as well. P: Patient is to discharge home with [facility]. Rosalinda Deng RN/Cutting Machine Operator Helper
--- NOTE | 2021-09-29 10:37 | PT.IPTN ---
Current Diagnoses Muscular dystrophy, unspecified (09/25/21) Unspecified fracture of left femur, initial encounter for closed fracture (09/25/21) Surgery Performed Operation Date: 09/26/21 16:15 Actual Procedures p IM Nailing Left femur fracture(Left) - Michelle Arriaga MD Physical Therapy Treatment Note M2 PT-IP Current Condition Start: 09/27/21 10:35 Freq: NEEDED Status: Active Protocol: Document 09/27/21 15:16 DLM (Rec: 09/27/21 16:10 DLM [id number]) Physical Therapy Current Condition Current Condition Evaluation Date 09/27/21 Treatment Diagnosis left femor ORIF w/distal fx, impaired gait and mobility Onset Date 09/25/21 M3 PT-IP Subjective Start: 09/27/21 10:35 Freq: NEEDED Status: Active Protocol: Document 09/29/21 10:16 LJ (Rec: 09/29/21 10:37 LJ [id number]) Subjective Physical Therapy Visit Type Type Treatment Note Visit Start Time 09:18 Visit Stop Time 09:58 Total Visit Minutes [address] Arriaga in room. Instructed pt on WB status Number of EMBEDDED ENGINEER Visits 1 Physical Therapy Visit Comments Patient Comments Pt glad to be going home today Patient Goals discharge home to [facility] with his help Therapy Pain Assessment Pain When Pain Assessed After Treatment Pain Present Pain Present Pain Reported M4 PT-IP Mobility and Gait Start: 09/27/21 10:35 Freq: NEEDED Status: Active Protocol: Document 09/29/21 10:16 LJ (Rec: 09/29/21 10:37 LJ [id number]) PT-Transfer Assessment Sit to and From Stand Sit to and from Stand Standby Assistance,Contact Guard Assistance,1 Person Assistance,Use of Upper Extremities Equipment Transfer Assistive Device Gait Belt,Front Wheeled Walker Transfers Transfer Destination Chair Transfer Technique ambulated Transfer Ability Level of Assist Standby Assistance,Contact Guard Assistance,Use of Upper Extremities Comments Mobility Comments Pt sitting in chair agreeable to do PT. Pt requiring cues to scoot forward in chair prior to attempting to stand. First attempt was CGA pushing off chair LLE extended. Second attempt was SBA with cues but pt more coordinated second attempt. Pt ambulated out to hallway CGA and SBA ~50' twice for total gait distance of roughly 100'. First time with hospital FWW then second time with [facility] FWW. Pt uses step- to pattern and had difficulty with offloading LLE (Per Dr. Arriaga instructions not to put full weight on LLE yet) but second ambulating trial she was able to use UEs to assist with reducing weightbearing on LLE. Pt was left in chair with all needs within reach. Gait Assessment Gait Gait Assistance Required: Standby Assistance,Contact Guard Assist Distance (Feet) 100 Assistive Devices Assistive Device Gait Belt,Front Wheeled Walker Gait Deviations General Gait Pattern Antalgic Factors Limiting Gait Function Factors Limiting Gait Function Decreased Activity Tolerance, Decreased Strength, Incoordination,Pain,Poor Balance Comments Gait Comments Two trials of gait performed this session with increased independence, coordination, and distance. LLE externally rotated slightly. Stair Climbing Assessment Comments Stair Climbing Comments no stairs at [facility] M5 PT-IP Objective Assessments Start: 09/27/21 10:35 Freq: NEEDED Status: Active Protocol: Document 09/27/21 15:16 DLM (Rec: 09/27/21 16:10 DL [id number]) Orientation Orientation/Cognition Level of Alertness Alert Orientation Name,Age,Birthday,Month,Date, Year,Day of Week,Place, Situation Language Function Ability No Deficits Noted Safety Awareness Understands Safety Issues Memory Description No Deficits Noted Comments She gets distracted easily and will need some repetition of new information. She is a good historian about her MD. She is able to follow instructions well. She shows very good effort during therapy. Pt does repeat herself in conversation. Gross Range of Motion Upper Extremity ROM Assessment Within Functional Limits Lower Extremity ROM Assessment Within Functional Limits Strength Upper Extremity Strength Assessment Within Functional Limits Lower Extremity Strength Assessment Bilaterally Impaired Hip flex right 3+/5, left 2+/5 Knee ext right 4+/5, left 2+/5 Ankle DF right 5/5, left 4/5 Comments Strength Comments pain limits functional movements and strenght left LE Coordination Assessment Gross Coordination Gross Coordination WNL Sensation Assessment Sensation Gross Sensation WNL Muscle Tone Muscle Tone WNL Yes M6 PT-IP Treatment Start: 09/27/21 10:35 Freq: NEEDED Status: Active Protocol: Document 09/29/21 10:16 LJ (Rec: 09/29/21 10:37 LJ [id number]) Physical Therapy Treatment Exercises Exercises Ankle Pumps,Seated Knee Flexion/Extension Education Education Provided Weight Bearing Status,Safety Equipment Issued Equipment Type and Company FWW issued and adjusted Other Treatments Other Treatment Performed instructions and demonstration on how to reduce WB with FWW using UEs. She was able to demonstrate successfully during gait in room and hallway M7 PT-IP Assessment and Plan Start: 09/27/21 10:35 Freq: NEEDED Status: Active Protocol: Document 09/29/21 10:16 ARGENIS (Rec: 09/29/21 10:37 LJ [id number]) PT Summary Assessment and Plan Summary Impairments Pain,ROM,Strength,Balance,Bed Mobility,Transfers,Gait, Activity Tolerance Progress Towards Goals Goals Met Assessment Summary Pt performed well with both gait trials. She needed to be reminded to scoot forward in chair x1 but was able to transfer without difficulty. Successful at offloading LLE with UEs using FWW. She is safe to DC to friend's house with assistance. Goals Bed Mobility Goal Independent Transfer Goal Contact Guard Assistance, Minimal Assistance,Front Wheeled Walker Gait Goal Contact Guard Assistance, Minimal Assistance,Front Wheel Walker Gait Distance 20 feet Days to Meet Goals 4 Frequency of Treatment Frequency Of Treatment Twice a Day Treatment Plan Physical Therapy Treatment Plan Bed Mobility Training,Transfer Training,Gait Training, Therapeutic Exercise,Balance Retraining,Post Op Education, Discharge Planning,Hot or Cold Pack Precautions Other Precautions hx of MD with decreased balance Weight Bearing Status Weight Bearing Status Partial Weight Bearing Allowed Weight Bearing Amount (enter % 75# or less on left LE or #) (%) Recommendations To Nursing Amount of Assist Needed 1 Person Assist Discharge Recommendations PT Discharge Recommendations Home with Assistance,Home Health Other Discharge Recommendations Jaswinder plans to assist her at home Equipment Needed for Home Before issued and adjusted Discharge Transportation Needs at Discharge Private Vehicle [id number]
--- NOTE | 2021-09-29 16:18 | PC.NURSE ---
Pt is A&OX3, pleasant VSS, afebrile this a.m. Dressing to L hip C/D/I. She is able to ambulate with FWW and sit in the chair today, tolerating well with SBA. She is cleared for discharge by Ortho pending PT/OT this a.m. She reports pain is well controlled with scheduled tylenol. she is discharging to a friend's home for assistance and support. He arrives at bedside supportive. Her items are returned from the safe (wallet with money, ID, and credit cards) she verbalizes understanding of discharge instructions, site care, signs and symtpoms of infection, medication, activity and follow up appointment. She is given her prescription, ferry priority pass and transported by wheel chair with all of her belonging to private vehicle with friend by KARY at 1240 this afternoon.
== END 2021-09-29 12:40 | disposition home health service (06) | DRG 482 ==
LOC: ED 17:12 → AC 18:23
PROVIDERS: Orthopaedic Surgery; Admitting Provider Internal Medicine; Emergency Provider Emergency Medicine; Referring Provider Emergency Medicine; Visit Provider Internal Medicine
PROC: 0QSC06Z Reposition Left Lower Femur with Intramedullary Internal Fixation Device, Open Approach (ICD-10-PCS; CPT 27245; principal; 2021-09-26 16:15)
DX: S79.102A Unspecified physeal fracture of lower end of left femur, initial encounter for closed fracture (principal); G71.00 Muscular dystrophy, unspecified; M83.9 Adult osteomalacia, unspecified; W00.0XXA Fall on same level due to ice and snow, initial encounter; Z20.822 Contact with and (suspected) exposure to COVID-19
CPT/HCPCS: 36415; 72170; 72192; 73552; 73700; 76000; 80048; 80053; 85014; 85018; 85025; 85027; 85610; 87635; 93005; 94760; 96374; 97110; 97116; 97163; 97530; 99284; C9803; A9270; J0690; J2270; J2405; J2704; J3010

== ENCOUNTER 2021-10-17 08:13 | Inpatient (IN) | payer MEDICARE, SELFPAY ==
[2021-09-25 18:24] VITALS: BMI 19.1
[2021-10-16 14:11] VITALS: BMI 18.8
[2021-10-17] VITALS (15 sets, daily range): BP systolic 101–141; BP diastolic 53–75; PULSE 72–87; RESP 11–18; TEMP 36.3–37.1; O2SAT 95–100; BMI 18.8
[2021-10-17 08:55] LABS: COVID19 -Nasal RAPID Negative (Negative)
[2021-10-17] MEDS: LACTATED RINGERS 1,000 ML 42 ML IV (10:00)
--- NOTE | 2021-10-17 11:33 | PM.PREOP ---
Pre-operative Note COVID-19 COVID-19 status: Negative Result date/Date tested (Pos, Neg/Pending): 10/17/21 Interval Note History & Physical reviewed/Exam performed by Physician: Yes Changes to H&P: No H&P completed within 30 days and has changed as indicated here:: patient has increased left leg pain and instability
--- NOTE | 2021-10-17 11:34 | PM.OP.1 ---
Operative Date/Time/Diagnoses Date of procedure: 10/17/21 Time of procedure: 11:45 Pre-op diagnosis: Left femur fracture with history of left intramedullary rodding and prior left total knee arthroplasty with failure of bone and displacement of the femur fracture Post-op diagnosis: same Procedure & Clinicians Procedure: ORIF left femur with a locking plate. Same procedure as scheduled: Yes Indications: This is a 76-year-old female with a history of a left femur fracture. She had soft bone but had anatomic reduction with an intramedullary marry. Unfortunately she had loss of her fixation due to soft bone and displacement of her fracture she is brought to the operating room for further stabilization with lateral locking plate. Surgeon: Michelle Arriaga Radio Television Technical Director: Karishma Palacios Anesthesia Type: General Operative Notes Findings: Soft bone especially distally, stable fixation, acceptable alignment Closure Type: primary Specimen(s): none sent Prosthetic devices, grafts, tissues, transplants, or devices: NC be periprosthetic Joyce left 278 mm plate multiple screws Estimated Blood Loss (mL): 250 Procedure in detail: Patient is brought the operating room she underwent induction of a general anesthesia. She was transferred to the fracture table. Left lower extremities prepped draped standard sterile fashion. No tourniquet was used. Lateral skin incision was made dissection was carried out through skin and subcutaneous tissues. The fascia and iliotibial band was incised in line with the skin incision. Retractors were placed. Dissection was carried out down to the lateral aspect of the femur. The vastus lateralis of was retracted anteriorly. Distally it was incised down to the distal femoral fragment. A interlocking plate was selected. It was carefully position on the bone and confirmed with an AP and lateral image. Fluoroscopy was used throughout the procedure. The plate was a ?hot Crawford was used to elevate the periosteum and the plate was slid sub periosteal ER or along the periosteum proximally. It was adjusted distally so that it was felt that it would fit adequately around the total knee arthroplasty. It was fixed distally and then it was carefully positioned and fixed more proximally. AP and lateral image confirmed that we had fixation on the bone proximally and distally. Multiple distal lock screws were placed. The fracture was then carefully gently reduced. Particularly the valgus deformity of the fracture was reduced. There was some comminution on the little bit of excessive anterior bow but the position of the plate both on the femur and the distal femoral condyle or felt to be adequate. Carefully realigned the fracture. It was then fixed with multiple screws. Screws were shot to give unicortical poor purchase as well as some by cortical purchase. The marry was in a position that did not allow unlimited fixation but I was happy with the overall fixation. She had soft bone distally but a good reduction and stable fixation was achieved. The locking several locking caps were used proximally. The wound was meticulously irrigated with normal saline. Fluoroscopy was used fairly extensively during the surgery. Marcaine was injected. The wound was closed with interrupted Vicryl chayito stitches and skin jonathan. The wound was dressed sterilely. Complications none. Postoperative plan 50 lb maximum a left lower extremity gentle range of motion of the left leg. He does does have a postoperative knee brace to provide additional support. Complications: none Post-operative Condition: stable Disposition: Acute Care Plan for aftercare: Gentle range of motion left knee, 50 lb max weight-bearing left lower extremity. Home when safe likely tomorrow. X-rays in the recovery room and return to clinic in 2 weeks for repeat x-rays and staple removal.
[2021-10-17] MEDS: CEFAZOLIN 2 GM/20 ML SYRINGE IV ×2 (11:55→20:36)
--- NOTE | 2021-10-17 12:25 | SUR.OPER ---
Supine on padded OR bed, head on pillow, arms secured on padded arm boards at <90 degrees abduction, legs uncrossed, safety belt at abdomen, tape over blanket over right leg. Left leg draped free.
[2021-10-17] MEDS: ACETAMINOPHEN IV 1,000 MG/100 ML VIAL 400 MG IV (12:35)
[2021-10-17] MEDS: BUPIVACAINE 0.25% (PF) VIAL 30 ML INJ (14:39)
--- NOTE | 2021-10-17 15:11 | PM.PREOP ---
Pre-operative Note COVID-19 COVID-19 status: Negative Result date/Date tested (Pos, Neg/Pending): 10/17/21 Criteria for continued procedure: Expected advancement of disease process, Possibility delay results in more complex future surgery or treatment, Increased loss of function, Continuing or worsening of significant or severe pain, Deterioration of the patient's condition or overall health, Delay expected to result in less-positive ultimate med/surg outcome and Non-surgical alternatives not available or appropriate per current SOC Interval Note History & Physical reviewed/Exam performed by Physician: Yes Changes to H&P: No
--- NOTE | 2021-10-17 15:18 | DI.RAD.S_ITS ---
PROCEDURE: XR FEMUR LT MIN 2V INDICATIONS: FX REPAIR TECHNIQUE: 2 views of the femur were acquired. COMPARISON: [facility], CR, XR FEMUR LT MIN 2V, 09/26/2021, 19:56. FINDINGS: Bones: Intraoperative images demonstrating postsurgical changes compatible with internal fixation of distal left femur fracture. Orthopedic plate and screws have been placed for internal fixation. The distal left femur fracture is slightly displaced medially. Visualized portions of the left knee arthroplasty and left femur intramedullary marry are stable compared to the prior exam. Soft tissues: No suspicious soft tissue calcifications or masses. IMPRESSION: Expected postsurgical change for ORIF of distal left femur fracture. Dictated by: Sherrie Ferguson MD, PhD on 10/17/2021 at 14:59 Approved by: Sherrie Ferguson MD, PhD on 10/17/2021 at 15:01
--- NOTE | 2021-10-17 15:22 | DI.RAD.S_ITS ---
PROCEDURE: XR FEMUR LT MIN 2V INDICATIONS: FX REPAIR/PLATE TECHNIQUE: To views of the femur were acquired. COMPARISON: [facility], CR, XR FEMUR 2+ VIEWS LEFT, 10/12/2021, 13:55. [facility], CR, XR FEMUR LT MIN 2V, 09/26/2021, 19:56. [facility], CR, XR FEMUR LT MIN 2V, 09/26/2021, 18:47. [facility], CR, XR FEMUR LT MIN 2V, 10/17/2021, 13:05. FINDINGS: Bones: After the initial IM rotting of the distal femoral shaft spiral fracture, alignment worsened. This was seen on the 10/12/2021 film. This necessitated placement of a side plate and multiple screws to stabilize the femoral shaft fracture. There is improved alignment versus the films from 10/12/2021. There is no evidence of hardware failure or loosening. There is a degree of displacement at the fracture. A total knee arthroplasty remains intact. Soft tissues: No suspicious soft tissue calcifications or masses. IMPRESSION: Improved alignment post further operative fixation of the femoral shaft. Dictated by: Yassine Brooks M.D. on 10/17/2021 at 17:19 Approved by: Yassine Brooks M.D. on 10/17/2021 at 17:21
[2021-10-17] MEDS: LACTATED RINGERS 1,000 ML 125 ML IV ×2 (16:41→17:45)
[2021-10-17] MEDS: OXYCODONE IR 5 MG TABLET PO (16:42)
--- NOTE | 2021-10-17 16:46 | SUR.PHASEI ---
pt. transferred in bed Rm. 214 with Gabby RN with belonging and glasses on. Gave report at bedside to Aicha FERREIRA. Dressing checked, call light within reach, bed in low position.
--- NOTE | 2021-10-17 16:48 | SUR.PHASEI ---
All nursing care and charting done by Kelly Cruz student nurse supervised and checked by this RN.
[2021-10-17] MEDS: ACETAMINOPHEN 325 MG TABLET 975 MG PO (20:36)
[2021-10-17] MEDS: ASPIRIN EC 81 MG TABLET PO (20:36)
[2021-10-17] MEDS: DOCUSATE 100 MG CAPSULE PO (20:36)
[2021-10-18 00:02] VITALS: BP 108/54; PULSE 74; RESP 18; TEMP 36.8; O2SAT 100
[2021-10-18] MEDS: LACTATED RINGERS 1,000 ML 125 ML IV (01:43)
[2021-10-18] MEDS: OXYCODONE IR 5 MG TABLET PO ×2 (01:49→13:58)
[2021-10-18] MEDS: CEFAZOLIN 2 GM/20 ML SYRINGE IV (03:36)
[2021-10-18 04:42] VITALS: BP 115/60; PULSE 67; RESP 18; TEMP 36.3; O2SAT 96
[2021-10-18] MEDS: METHYLPHENIDATE 5 MG TABLET 10 MG PO (06:16)
[2021-10-18 08:02] VITALS: BP 107/52; PULSE 75; RESP 18; TEMP 37.1; O2SAT 96
[2021-10-18] MEDS: ACETAMINOPHEN 325 MG TABLET 975 MG PO (08:23)
[2021-10-18] MEDS: ATORVASTATIN 20 MG TABLET 10 MG PO (08:24)
[2021-10-18] MEDS: ASPIRIN EC 81 MG TABLET PO (08:25)
[2021-10-18] MEDS: DOCUSATE 100 MG CAPSULE PO (08:25)
[2021-10-18] MEDS: CHOLECALCIFEROL (VITAMIN D3) 1,000 UNIT TABLET 1000 UNIT PO (08:25)
--- NOTE | 2021-10-18 08:43 | PM.DS.1 ---
History of Present Illness History of Present Illness Date Patient Seen: 10/18/21 Time Patient Seen: 08:43 Chief complaint: hip pain Narrative: Hip pain is mild. Denies fever or chills. No nausea or vomiting. Patient does have caregiver home. Otherwise without complaints. Discharge Providers Provider Date of admission: 10/17/21 08:13 Discharge Date: 10/18/21 Consults: 10/17/21 16:23 Consult to Discharge Planning Routine Comment: Consult to Physical Therapy Evaluate & Treat Comment: Physician Instructions: Evaluate and Treat Consult to Respiratory Therapy Evaluate & Treat Comment: Physician Instructions: Evaluate and treat Discharge provider: Stefano White PA-C Summary Hospital Course Discharge Diagnosis: Left femur fracture with history of left intramedullary rodding and prior left total knee arthroplasty with failure of bone and displacement of the femur fracture Hospital Course: ORIF left femur with a locking plate. Same procedure as scheduled: Yes Indications: This is a 76-year-old female with a history of a left femur fracture.? She had soft bone but had anatomic reduction with an intramedullary marry.? Unfortunately she had loss of her fixation due to soft bone and displacement of her fracture she is brought to the operating room for further stabilization with lateral locking plate. Surgeon: Michelle Arriaga Perpetual Inventory Clerk: Karishma Palacios Anesthesia Type: General Operative Notes Findings: Soft bone especially distally, stable fixation, acceptable alignment Closure Type: primary Specimen(s): none sent Prosthetic devices, grafts, tissues, transplants, or devices: NC be periprosthetic Joyce left 278 mm plate multiple screws Estimated Blood Loss (mL): 250 Patient mid to the hospital for the above-mentioned procedure. Patient consented to the same. Patient taken operating room October 17, 2021. Patient back in her room recovering well as in stable condition. Patient was up to bedside using bedside commode with nurse assist. Her pain is well controlled. Patient will be discharged home today in stable condition after she works with physical therapy. Exam Vital Signs (past 8 hours): - 10/18/21 04:42 Temperature 97.3 F L Pulse Rate 67 Respiratory Rate 18 Blood Pressure 115/60 Pulse Oximetry 96 Oxygen Delivery Method Room Air Oxygen Flow Rate 0 Narrative Exam Narrative: Pleasant 76-year-old female resting comfortably in bed in no apparent distress. Dressing is Clean, dry, intact.. Motor functions intact bilateral lower extremities. Sensation grossly intact to light touch bilateral lower extremities. Objective Labs Labs: Laboratory Results - last 24 hr 10/17/21 08:30 SARS-CoV-2 (PCR) Negative PFSH Medical History HLD (hyperlipidemia) Muscular dystrophy Surgical History History of surgery (09/26/21) History of total left knee replacement Social History household members: none Smoking Status: Never smoker alcohol intake: current Discharge Assessment & Plan Assessment and Plan Assessment: Patient progressing as expected Plan of Treatment: Discharge home today after physical therapy if safe for home environment. Discharge Plan Discharge Plan Patient Disposition: Home Discharge orders & Medications Prescriptions: New aspirin 81 mg Tablet,Delayed Release (Dr/Ec) 81 mg PO BID Qty: 60 0RF docusate sodium 100 mg Capsule 100 mg PO BID Qty: 20 0RF oxycodone 5 mg Tablet 5 mg PO Q3HR PRN (Reason: Pain, Moderate (4-6)) Qty: 30 0RF Continued acetaminophen [Tylenol Extra Strength] 500 MG tablet 1,000 mg PO Q4HP MDD 3000 PRN (Reason: Pain (Scale Score 4-6)) Qty: 0 0RF cholecalciferol (vitamin D3) [Vitamin D3] 50 mcg (2,000 unit) Capsule 50 mcg PO DAILY Qty: 0 0RF Xiidra 5 % dropperette 1 drp EYE-BOTH DAILY 0RF Label Comments: INSTILL ONE DROP IN EACH EYE EVERY DAY methylphenidate HCl 10 mg tablet 10 mg PO BID 0RF Label Comments: TAKE ONE TABLET BY MOUTH TWICE DAILY Estring 2 mg (7.5 mcg /24 hour) ring 2 vag ring VAGINAL A3IDOTCP 0RF Label Comments: INSERT ONE RING VAGINALLY EVERY 90 DAYS. REMOVE OLD RING BEFORE INSERTING NEW. ezetimibe-simvastatin 10-20 mg tablet 10 - 20 tab PO DAILY 0RF Label Comments: TAKE ONE TABLET BY MOUTH NIGHTLY Myrbetriq 25 mg tablet extended release 24 hr 25 mg PO DAILY 0RF Label Comments: Take 1 tablet by mouth Daily. hydrocodone-acetaminophen 5-325 mg Tablet 1 tab PO Q4HR PRN (Reason: Pain, Mild (1-3)) Qty: 20 0RF Follow up/Referrals: Michelle Arriaga MD [Physician] - ([facility] in 2 weeks) Diet/Activity/Treatments Diet: Diet as Tolerated Activity: Gentle range of motion left knee, 50 lb max weight-bearing left lower extremity Cold/Heat Therapy: Ice as needed Skin/Wound/Dressing Care Dressing: Keep dressings clean and dry Visit Report/Discharge Packet Instructions: DI for Heart Failure, DI for Open Reduction Internal Fixation Surgery, DI for Prescription Opioid Use Stand Alone Forms: Surgery Discharge Quality VTE Deep Vein Thrombosis/Pulmonary Embolism Present on Admission: No
--- NOTE | 2021-10-18 09:20 | PT.IIE ---
Current Diagnoses Pain, unspecified (10/17/21) Displaced supracondylar fracture without intracondylar extension of lower end of left femur, initial encounter for closed fracture (10/17/21) Surgery Performed Operation Date: 10/17/21 11:00 Actual Procedures p ORIF Femur Fracture(Left) - Michelle Arriaga MD Medical History (Last Reviewed 10/18/21 @ 08:46 by Stefano White PA-C) HLD (hyperlipidemia) Muscular dystrophy Physical Therapy Inpatient Evaluation/Re-Eval M1 PT/OT-IP Prior Functional Status Start: 10/18/21 12:23 Freq: NEEDED Status: Active Protocol: Document 10/18/21 09:20 AB (Rec: 10/18/21 12:37 AB [id number]) Medical Review Prior Functional Status Medical History Reviewed Yes Communication able to make needs known Mobility and Gait pt with HOB L hip ORIF and was PWB of 75# at that time. Pt stated that she went to her friends house and was modified independent with all mobilities and ambulation using FWW Social History Household Members none Living Arrangements House Number of Floors (Floors) One Floor Number of Stairs To Enter/Railing? pt plans to d/c to her friend Jaswinder's house. info providing is regarding pt's friends home set up. Jaswinder also will be assisting pt no steps to enter Home Environment Walk in Shower Home Equipment Front Wheel Walker,Manual Wheelchair,Bedside Commode, Shower Seat without Backrest, Hand Held Shower,Grab Bars In Shower M2 PT-IP Current Condition Start: 10/18/21 12:23 Freq: NEEDED Status: Active Protocol: Document 10/18/21 09:20 AB (Rec: 10/18/21 12:37 AB [id number]) Physical Therapy Current Condition Current Condition Evaluation Date 10/18/21 Treatment Diagnosis L femur ORIF rev w/locking plate; difficulty in walking Onset Date 10/17/21 M3 PT-IP Subjective Start: 10/18/21 12:23 Freq: NEEDED Status: Active Protocol: Document 10/18/21 09:20 AB (Rec: 10/18/21 12:37 AB [id number]) Subjective Physical Therapy Visit Type Type Initial Evaluation Visit Start Time 09:20 Visit Stop Time 10:25 Total Visit Minutes 65 Number of TRAFFIC SIGN ERECTION SUPERVISOR Visits 0 Physical Therapy Visit Comments Patient Comments agreeable to do PT Therapy Pain Assessment Pain When Pain Assessed At Rest Pain Present Pain Present Pain Reported Location left leg Intensity 3 Scale Used Numeric (0 - 10) Pain Management Techniques Distraction,Modification of Treatment,Re-positioning, Timing of Activity with Medications M4 PT-IP Mobility and Gait Start: 10/18/21 12:23 Freq: NEEDED Status: Active Protocol: Document 10/18/21 09:20 AB (Rec: 10/18/21 12:37 AB [id number]) PT-Bed Mobility Assessment Supine to Sit Supine to Sit Standby Assistance PT-Transfer Assessment Sit to and From Stand Sit to and from Stand Minimal Assistance,1 Person Assistance,Use of Upper Extremities Equipment Transfer Assistive Device Gait Belt,Front Wheeled Walker Orthotic/Prosthetic Devices or Brace: No Transfers Transfer Destination Bed,Chair Transfer Technique Stand Step Pivot Transfer Ability Level of Assist Minimal Assistance,1 Person Assistance,Use of Upper Extremities Comments Mobility Comments educated pt regarding TTWB ( 50# max) on LLE. pt requires constant cues for safety. completed supine to sit SBA. able to sit on EOB SBA. completed sit to stand min A and cues. pt ambulated ~ 12 ft using FWW min A and cues. pt is able to maintain weight bearing restriction. Transfer training conducted using FWW. pt completed x 5 : completed requiring min A and cues bed <> chair. pt agreed to stay up on chair. positioned on chair. call light and table placed within reach. informed pt regarding caregiver training. Set up at ~ 1pm this afternoon. Gait Assessment Gait Gait Assistance Required: Minimum Assistance Distance (Feet) 12 Able to Maintain Weight Bearing Status Yes During Gait Assistive Devices Assistive Device Gait Belt,Front Wheeled Walker Orthotic/Prosthetic Devices or Brace: No Gait Deviations General Gait Pattern Antalgic,Decreased Stride Length,Decreased Feet Clearance Factors Limiting Gait Function Factors Limiting Gait Function Decreased Activity Tolerance, Decreased Strength,Difficulty Following Directions,Limited Range of Motion,Pain,Poor Balance,Poor Safety Awareness PT-Balance Assessment Sitting Balance and Reactions Static Sitting Balance Ability Good Dynamic Sitting Balance Ability Good Standing Balance and Reactions Static Standing Balance Ability Fair Dynamic Standing Balance Ability Fair Device Used FWW M5 PT-IP Objective Assessments Start: 10/18/21 12:23 Freq: NEEDED Status: Active Protocol: Document 10/18/21 09:20 AB (Rec: 10/18/21 12:37 AB [email or web address]) Orientation Orientation/Cognition Level of Alertness Alert Orientation Name,Place,Situation Safety Awareness Decreased Safety Awareness Memory Description Short Term Impaired Comments with confusion Gross Range of Motion Lower Extremity ROM Assessment Left Impaired Impairments L knee tightness: AROM: ~ 50 deg flexion Strength Lower Extremity Strength Assessment Left Impaired Hip 3-/5 Knee 3+/5 Muscle Tone Muscle Tone WNL Yes M6 PT-IP Treatment Start: 10/18/21 12:23 Freq: NEEDED Status: Active Protocol: Document 10/18/21 09:20 AB (Rec: 10/18/21 12:37 AB [email or web address]) Physical Therapy Treatment Education Education Provided Weight Bearing Status,Safety M7 PT-IP Assessment and Plan Start: 10/18/21 12:23 Freq: NEEDED Status: Active Protocol: Document 10/18/21 09:20 AB (Rec: 10/18/21 12:37 AB [email or web address]) PT Summary Assessment and Plan Potential Rehabilitation Potential Good Status of Condition at Evaluation Stable Summary Impairments Pain,ROM,Strength,Balance, Coordination,Sensation,Tone, Cognition,Bed Mobility, Transfers,Gait,Activity Tolerance Assessment Summary pt requiring min A with mobility and cues for safety. caregiver training set up at 1pm this afternoon. pt plans to go home and her friend will assist her. Goals Bed Mobility Goal Independent Transfer Goal Independent,Front Wheeled Walker Gait Goal Independent,Front Wheel Walker Gait Distance 40 Days to Meet Goals 5 Frequency of Treatment Frequency Of Treatment Twice a Day Treatment Plan Physical Therapy Treatment Plan Bed Mobility Training,Transfer Training,Gait Training, Therapeutic Exercise,Balance Retraining,Post Op Education, Discharge Planning,Hot or Cold Pack,Neuromuscular Re-ed, Coordination Retraining,Manual Therapy Weight Bearing Status Weight Bearing Status Touch Down Weight Bearing Allowed Weight Bearing Amount (enter % LLE: 50# TTWB or #) (%) Recommendations To Nursing Amount of Assist Needed 1 Person Assist Discharge Recommendations PT Discharge Recommendations Home with 22/04 Assist Available,Home Health Transportation Needs at Discharge Private Vehicle
[2021-10-18 09:36] LABS: Hematocrit 31.7 % (36-46); Hemoglobin 10.4 g/dL (12.0-16.0); Mean Corpuscular HGB Conc 32.7 % (30-36); Mean Corpuscular Hemoglobin 30.5 PG (26-34); Mean Corpuscular Volume 93.3 fL (80-100); Platelet Count 504 X10^3/uL (150-400); Red Cell Distribution Width 14.3 % (11.6-14.8); White Blood Cell Count 10.8 X10^3/uL (4.5-11.0)
--- NOTE | 2021-10-18 10:49 | CM.DANOTE ---
DCP: Case received, EMR reviewed and met with patient. Patient is familiar to this meeting planner from her last visit. Introduced self and role. Was able to obtain information regarding patient's baseline activity level prior to this admission, as well as her current living situation. DCP assessment completed with information currently available. Patient is a 76 year old female who admitted yesterday morning to the care of the orthopedic team. PCP: Dr. Kalie Mullen. Payer: confirmed: Pete Zarate. Patient came to the hospital for a surgical procedure. Patient had a recent left total knee arthroplasty with failure of bone and displacement of the femur fracture. Patient had planned surgery yesterday. Patient also has history of muscular dystrophy. Met with patient in her room. She was sitting up in bed, just finished breakfast, alert and oriented, pleasant. Patient was here recently for a surgery, developed some complications. Patient lives in [place] alone, but has been staying with her friend, Jaswinder. Asked her if she was still getting home health, and [place] indicated, [place]. She [place] a FWW, bedside commode at home, she was able to get [place] [facility] [place] P: Patient has discharge order for today. Her significant other, Jaswinder, will be here at approximately noon, and [place] afternoon ferry. Rosalinda Deng RN/Cattle Trader Discharge Planning/Care Management Advanced directive, confirm from FAMILY Start: 10/17/21 17:40 Freq: Q24H Status: Active Protocol: Document 10/17/21 17:40 AK (Rec: 10/17/21 17:41 AK [id number]) Advance Directive, confirm on record Time 17:40 Person contacted patient to look on patient portal for copy Copy received No CM Discharge Assessment Start: 10/18/21 10:47 Freq: Status: Active Protocol: Document 10/18/21 10:47 (Rec: 10/18/21 10:49 [id number]) Discharge Planning Assessment Assigned Clinical Laboratory Scientist Selam Deng RN/Cattle Trader Advance Directives? Yes Advance Directives on File No History Provided By Patient,Medical Record Prior Living Arrangements House Household Members none Type of transporation used prior to Relies on Others admit Independent with ADL's Yes Is patient alert and oriented? Yes Needs Assistance With Meal Prep,Home Chores / Shopping DME Already Rented / Owned Wheelchair,FWW / Walker, Bedside Commode Comment [facility] Patient/Family Preference OP PT Therapy Barriers to Discharge No Comment Patient has been staying with her friend, Jaswinder. Discharge Plan Home Transportation Arrangement Facility Whiteboard Updated in Patient Room with Yes name and ext. # of Clinical Laboratory Scientist Review Status In Process Next Review Type Continued Stay Review Pre-Anesthesia Assessment Start: 10/16/21 14:10 Freq: Status: Active Protocol: Document 10/16/21 14:11 CAB (Rec: 10/16/21 14:16 [facility] [id number]) Pre-Anesthesia Assessment Patient Information Reviewed Via Chart Review Comment COVID RAPID on admit Seen Specialist in Last 12 Months Yes Specialist Seen Emergency,Orthopedist Primary Language Yoruba Preferred Language Yoruba District Administrator Required No Height 5 ft 4 in Weight 110 lb Body Mass Index (BMI) 18.8 Hearing Ability Normal Visual Assist Glasses Hx Anesthesia Reactions No Hx Family Anesthesia Reaction No Hx Malignant Hyperthermia No Hx Blood Transfusion Reaction No Anesthesia Review Requested No Supervisor Research Kennel No alcohol intake current alcohol intake frequency 0-2 drinks per day Smoking Status Never smoker Substance Use Type does not use Pain Present Pain Reported Musculoskeletal Symptoms Abnormal Gait,Difficulty Walking,Joint Pain History of Falling (Recent or History of Yes ) Patient is completely paralyzed or No completely immobile Prosthesis or Orthotic Device Front Wheel Walker Mental Status Oriented to own ability Is patient on oxygen? 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 No Diet Type At Home Regular Urinary Catheter Present No Hx Urinary Self Catheterization No Diabetes No Patient No Lactating No Presence of External or Internal Medical Yes: bilateral knee Devices replacements, left femur Received a COVID vaccine? Yes: x3 Marital Status Lives With none Support System Family,Friend(s) Patient Discharge Plan Description Return Home Comment Lives on [facility] Do You Have Any Spiritual Beliefs That No May Affect Your HC Choices? Do You Have Any Cultural Practices That No May Affect Your HC Choices? Emergency Contact Name Marry Raphael Emergency Contact Advance Directives? No Advance Directives on File No Power of Ed Teacher Yes Power of Ed Teacher Name Marry Raphael Power of Ed Teacher Phone Number Marry Raphael
[2021-10-18 12:18] VITALS: BP 118/58; PULSE 83; RESP 16; TEMP 36.7; O2SAT 98
--- NOTE | 2021-10-18 12:59 | PT.IPTN ---
Current Diagnoses Pain, unspecified (10/17/21) Displaced supracondylar fracture without intracondylar extension of lower end of left femur, initial encounter for closed fracture (10/17/21) Surgery Performed Operation Date: 10/17/21 11:00 Actual Procedures p ORIF Femur Fracture(Left) - Michelle Arriaga MD Physical Therapy Treatment Note M2 PT-IP Current Condition Start: 10/18/21 12:23 Freq: NEEDED Status: Discharge Protocol: Document 10/18/21 09:20 AB (Rec: 10/18/21 12:37 AB [email or web address]) Physical Therapy Current Condition Current Condition Evaluation Date 10/18/21 Treatment Diagnosis L femur ORIF rev w/locking plate; difficulty in walking Onset Date 10/17/21 M3 PT-IP Subjective Start: 10/18/21 12:23 Freq: NEEDED Status: Discharge Protocol: Document 10/18/21 12:59 AB (Rec: 10/18/21 14:18 AB [email or web address]) Subjective Physical Therapy Visit Type Type Treatment Note Visit Start Time 12:59 Visit Stop Time 13:16 Total Visit Minutes 17 Number of [employer] Visits 0 M4 PT-IP Mobility and Gait Start: 10/18/21 12:23 Freq: NEEDED Status: Discharge Protocol: Document 10/18/21 12:59 AB (Rec: 10/18/21 14:18 AB [email or web address]) PT-Transfer Assessment Sit to and From Stand Sit to and from Stand Contact Guard Assistance, Minimal Assistance,1 Person Assistance,Use of Upper Extremities Equipment Transfer Assistive Device Gait Belt,Front Wheeled Walker Orthotic/Prosthetic Devices or Brace: No Transfers Transfer Destination Bed,Chair Transfer Technique Stand Step Pivot Transfer Ability Level of Assist Contact Guard Assistance, Minimal Assistance,1 Person Assistance,Use of Upper Extremities Comments Mobility Comments caregiver training conducted. Pt's friend Jaswinder will be assisting pt at home. educated caregiver on pt's weight bearing restriction, use of safety belt and how to assist pt. caregiver was able to put safety belt on, assists pt with sit to stand and assists with pt with transfers maribell<> bed x 2 using FWW. educated on safety . Pt and caregiver without any other concerns. Informed nurse regarding pt's mobility and awaiting d/c. M5 PT-IP Objective Assessments Start: 10/18/21 12:23 Freq: NEEDED Status: Discharge Protocol: Document 10/18/21 09:20 AB (Rec: 10/18/21 12:37 AB [id number]) Orientation Orientation/Cognition Level of Alertness Alert Orientation Name,Place,Situation Safety Awareness Decreased Safety Awareness Memory Description Short Term Impaired Comments with confusion Gross Range of Motion Lower Extremity ROM Assessment Left Impaired Impairments L knee tightness: AROM: ~ 50 deg flexion Strength Lower Extremity Strength Assessment Left Impaired Hip 3-/5 Knee 3+/5 Muscle Tone Muscle Tone WNL Yes M6 PT-IP Treatment Start: 10/18/21 12:23 Freq: NEEDED Status: Discharge Protocol: Document 10/18/21 12:59 AB (Rec: 10/18/21 14:18 AB [email or web address]) Physical Therapy Treatment Education Education Provided Weight Bearing Status,Safety M7 PT-IP Assessment and Plan Start: 10/18/21 12:23 Freq: NEEDED Status: Discharge Protocol: Document 10/18/21 12:59 AB (Rec: 10/18/21 14:18 AB [id number]) PT Summary Assessment and Plan Potential Rehabilitation Potential Fair Summary Impairments Pain,ROM,Strength,Balance, Coordination,Sensation,Tone, Cognition,Bed Mobility, Transfers,Gait,Activity Tolerance Progress Towards Goals Slow Progress - Other Assessment Summary caregiver training conducted and pt's friend was able to assist pt safely. pt may go home when medically stable. Goals Bed Mobility Goal Independent Transfer Goal Independent,Front Wheeled Walker Gait Goal Independent,Front Wheel Walker Gait Distance 40 Days to Meet Goals 5 Frequency of Treatment Frequency Of Treatment Twice a Day Treatment Plan Physical Therapy Treatment Plan Bed Mobility Training,Transfer Training,Gait Training, Therapeutic Exercise,Balance Retraining,Post Op Education, Discharge Planning,Hot or Cold Pack,Neuromuscular Re-ed, Coordination Retraining,Manual Therapy Weight Bearing Status Weight Bearing Status Touch Down Weight Bearing Allowed Weight Bearing Amount (enter % LLE: 50# TTWB or #) (%) Recommendations To Nursing Amount of Assist Needed 1 Person Assist Discharge Recommendations PT Discharge Recommendations Home with 22/04 Assist Available,Home Health Transportation Needs at Discharge Private Vehicle
== END 2021-10-18 14:04 | disposition home or self-care (01) | DRG 482 ==
PROVIDERS: Physician Assistant; Admitting Provider Orthopaedic Surgery; Referring Provider Orthopaedic Surgery; Visit Provider Orthopaedic Surgery
PROC: 0QSC04Z Reposition Left Lower Femur with Internal Fixation Device, Open Approach (ICD-10-PCS; CPT 27514; principal; 2021-10-17 11:00)
DX: S72.452A Displaced supracondylar fracture without intracondylar extension of lower end of left femur, initial encounter for closed fracture (principal); M83.9 Adult osteomalacia, unspecified; E78.5 Hyperlipidemia, unspecified; Z96.652 Presence of left artificial knee joint; Z20.822 Contact with and (suspected) exposure to COVID-19; W19.XXXA Unspecified fall, initial encounter
CPT/HCPCS: 27514; 36415; 73552; 76000; 85027; 87635; 97161; 97530; C9803; G0379; J0131; J0690; J1100; J1170; J2405; J3010